=== PATIENT | male | born 1965 | race Caucasian/White ===

== ENCOUNTER 2018-09-20 19:37 | Inpatient (IN) ==
--- NOTE | 2018-09-20 20:31 | Emergency Department Note ---
Disposition Clinical Impression: Unstable angina pectoris Disposition: Admitted As Inpatient Condition: Good Time of Disposition: 21:53 Chest Pain HPI - General Chief Complaint: ED Chest Pain Stated Complaint: ILSA/CP/back pain Time Seen by Provider: 09/20/18 19:59 Source: patient Mode of arrival: ambulatory Limitations: no limitations Vital Signs Reviewed: Yes Nursing Notes Reviewed: Yes - History of Present Illness HPI Narrative: 52-year-old male with no history of hypertension, hyperlipidemia or diabetes, nonsmoker but has an extensive family history of premature cardiovascular disease arrives to the emergency department with complaint of exertional dyspnea, chest discomfort. Patient describes it as a chest tightness is retrosternal radiating to bilateral shoulders and down his right upper extremity. Patient states that over the past few days he has been experiencing the same symptoms while at rest. The patient was seen in emergency department one day ago was diagnosed with angina. The patient states that he had a cardiac catheter roughly 6 years ago that he received no stents. The patient states he has not followed up since then. Patient is noted to be mildly hypertensive on evaluation in the room. He is obese. The patient denies any active chest pain at this time. No other complaints noted. Severity scale (1-10): 0 - Related Data Home Medications Medication Instructions Recorded Confirmed Cetirizine HCl [Zyrtec] 10 mg PO DAILY 05/01/15 05/01/15 Previous Rx's Medication Instructions Recorded Docusate Sodium [Colace] 100 mg PO QPM #30 capsule 05/02/15 Omeprazole 20 mg PO DAILY #30 capsule. 05/02/15 Peg 3350/Na Sulf,Bicarb,Cl/KCl 1 each PO DAILY #1 powd.pack 05/02/15 [Golytely Packet] OxyCODONE/APAP 5/325 [Percocet 1 each PO Q6HR PRN #10 tablet 05/07/15 5/325] Ciprofloxacin [Cipro] 500 mg PO BID #14 tablet 02/13/17 HYDROcodone/Acet 5/325 mg [[place] 1 tab PO Q6H PRN #12 tab 02/13/17 5-325 mg] Omeprazole [PriLOSEC] 40 mg PO DAILY #14 cap 02/13/17 Allergies Allergy/AdvReac Type Severity Reaction Status Date / Time metronidazole [From Flagyl] Allergy Nausea Verified 05/01/15 21:18 All systems ED: reviewed and negative except as stated. Constitutional: Denies: fever, chills, weakness ENT ED: Denies: dysphagia Cardiovascular: Reports: chest pain, dyspnea on exertion. Denies: orthopnea, edema, syncope Respiratory: Reports: dyspnea. Denies: cough, sputum production Gastrointestinal: Denies: abdominal pain, nausea, vomiting Genitourinary: Denies: urgency, dysuria, frequency, hematuria Musculoskeletal: Denies: back pain, neck pain, arthralgia, myalgia Integumentary: Denies: rash, abrasion, lesions Neurological: Denies: headache Chest Pain PMH - Past Medical History Medical history: Reports: other Surgical history: Reports: appendectomy Psychiatric history: Reports: anxiety Prior Cardiac Testing/Procedures: Echocardiogram, Stress Test, Cardiac Angiogram - Social History Smoking Status: Never smoker Alcohol use: Reports: none Drug use: Reports: none Physical Exam - General Limitations: no limitations General appearance: alert, in no apparent distress - Head Head exam: atraumatic, normocephalic, normal inspection - Eye Eye exam: Present: normal appearance, PERRL, EOMI - ENT ENT exam: normal exam, normal oropharynx, mucous membranes moist - Neck Neck exam: Present: normal inspection, full ROM, trachea midline - Chest Chest inspection: Present: normal inspection, symmetric chest wall rise - Respiratory Respiratory exam: Present: normal lung sounds bilaterally - Cardiovascular Cardiovascular exam: Present: regular rate, normal rhythm, normal heart sounds - Abdominal Exam Abdominal exam: Present: soft, Non-Tender. Absent: tenderness, distention, guarding, rebound, rigidity - Extremities Exam Extremities exam: Present: normal inspection, full ROM. Absent: tenderness, pedal edema - Neurological Exam Neurological exam: Present: alert, oriented X3 - Skin Skin exam: Present: warm, dry, intact, normal color Course Vital Signs Temperature 98.2 F 09/20/18 19:41 Pulse Rate 99 09/20/18 19:41 Respiratory Rate 18 09/20/18 19:41 Blood Pressure 147/86 09/20/18 19:41 O2 Sat by Pulse Oximetry 98 09/20/18 19:41 Temperature 98.2 F 09/20/18 19:41 Pulse Rate 88 09/20/18 20:43 Respiratory Rate 16 09/20/18 20:43 Blood Pressure 134/96 09/20/18 20:43 O2 Sat by Pulse Oximetry 99 09/20/18 20:43 Oxygen Delivery Oxygen Delivery Room Air Chest Pain - MDM Narrative Medical decision making narrative: Patient's workup in the emergency department demonstrates no acute process. The patient however has been exhibiting findings concerning for unstable angina. The patient has an extensive family history of cardiovascular disease and I am concerned about the patient's symptoms. Patient's chest x-ray, EKG and troponin are both negative for any acute process. We will admit the patient to the hospital at this time for trending of troponins as well as likely cardiology follow-up and stress testing. The patient was made aware and agrees to plan. No further questions or concerns noted at this time. Accepted by Dr. Vang. - Lab Data Lab results reviewed: Yes I reviewed the patient's lab results. Result diagrams: 09/20/18 20:20 09/20/18 20:20 Lab Results 09/20/18 09/20/18 09/20/18 Range/Units 20:20 20:20 20:20 WBC 11.6 H (4.3-11.1) K/mcL RBC 5.14 (4.19-5.50) M/mcL Hgb 15.5 (12.9-16.9) g/dL Hct 45.4 (37.5-50.1) % MCV 88.3 (83.0-100.0) fL MCH 30.2 (28.0-33.3) pg MCHC 34.1 (31.6-35.5) g/dL RDW 13.3 (11.5-14.5) % Plt Count 250 (140-400) K/mcL MPV 10.1 (9.4-12.4) fL Immature Gran % 0.4 (0-4) % Seg Neutrophils % 67.9 % Lymphocytes % 17.6 % Monocytes % 11.0 % Eosinophils % 2.4 % Basophils % 0.7 % Neutrophils # 7.9 (1.6-8.9) K/mcL Lymphocytes # 2.0 (0.6-4.6) K/mcL Monocytes # 1.3 (0.0-1.3) K/mcL Eosinophils # 0.3 (0.0-0.6) K/mcL Basophils # 0.1 (0.0-0.2) K/mcL PT 12.4 H (9.4-12.1) Seconds INR 1.1 APTT 35.0 (26.0-36.0) Seconds Sodium 141 (136-145) mEq/L Potassium 4.1 (3.5-5.1) mEq/L Chloride 104 (98-107) mEq/L Carbon Dioxide 28 (23-29) mEq/L BUN 18 (6-20) mg/dL Creatinine 1.22 (0.70-1.30) mg/dL Est GFR ( Amer) > 60 (> 60) Est GFR (Non-Af Amer) > 60 (> 60) BUN/Creatinine Ratio 15 (6-26) Glucose 92 (70-105) mg/dL Calculated Osmolality 294 (280-300) Calcium 9.2 (8.6-10.3) mg/dL Troponin I < 0.03 (< 0.04) ng/mL - Radiology Data Radiology results reviewed: Yes I reviewed the patient's radiology results. Chest X-Ray 09/20/18 19:59 IMPRESSION: No acute cardiopulmonary process D/ / [place] Gracia / [place] Gracia Interpreting Provider: [place] Gracia - EKG Data EKG attestation: Yes I reviewed and interpreted this EKG. EKG results narrative: Heart rate 85 beats for minute. Normal sinus rhythm. No ST elevation or ST depression noted. PVCs noted. EKG overall similar to EKG from 06/24/2013. No acute changes.
[2018-09-20 20:38] LABS: Basophils # 0.1 K/mcL (0.0-0.2); Basophils % 0.7 %; Eosinophils # 0.3 K/mcL (0.0-0.6); Eosinophils % 2.4 %; Hematocrit 45.4 % (37.5-50.1); Hemoglobin 15.5 g/dL (12.9-16.9); Immature Granulocytes % 0.4 % (0-4); Lymphocytes % 17.6 %; Mean Corpuscular HGB Conc 34.1 g/dL (31.6-35.5); Mean Corpuscular Hemoglobin 30.2 pg (28.0-33.3); Mean Corpuscular Volume 88.3 fL (83.0-100.0); Mean Platelet Volume 10.1 fL (9.4-12.4); Monocytes # 1.3 K/mcL (0.0-1.3); Neutrophils # 7.9 K/mcL (1.6-8.9); Platelet Count 250 K/mcL (140-400); Red Blood Count 5.14 M/mcL (4.19-5.50); Red Cell Distribution Width 13.3 % (11.5-14.5); Segmented Neutrophils % 67.9 %
[2018-09-20 20:46] LABS: INR 1.1; Prothrombin Time 12.4 Seconds (9.4-12.1)
[2018-09-20 20:58] LABS: BUN/Creatinine Ratio 15 (6-26); Blood Urea Nitrogen 18 mg/dL (6-20); Calcium 9.2 mg/dL (8.6-10.3); Carbon Dioxide 28 mEq/L (23-29); Chloride 104 mEq/L (98-107); Glucose 92 mg/dL (70-105); Osmolality,Calculated 294 (280-300); Potassium 4.1 mEq/L (3.5-5.1); Sodium 141 mEq/L (136-145); eGFR For Non-African Americans > 60 (> 60)
[2018-09-20 20:59] LABS: Troponin I < 0.03 ng/mL (< 0.04)
[2018-09-20] MEDS ORDERED: Aspirin 325 MG TABLET PO ONE (21:30)
--- NOTE | 2018-09-20 22:28 | Emergency Department Note ---
Disposition Clinical Impression: Unstable angina pectoris Disposition: Admitted As Inpatient Condition: Good General Adult HPI - General Chief complaint: ED Chest Pain Stated complaint: ILSA/CP/back pain Time Seen by Provider: 09/20/18 19:59 Source: patient Mode of arrival: ambulatory Limitations: no limitations Nursing Notes Reviewed: Yes Vital Signs Reviewed: Yes - History of Present Illness Pain Scale: 0 - Related Data Home Medications Medication Instructions Recorded Confirmed Cetirizine HCl [Zyrtec] 10 mg PO DAILY 05/01/15 05/01/15 Previous Rx's Medication Instructions Recorded Docusate Sodium [Colace] 100 mg PO QPM #30 capsule 05/02/15 Omeprazole 20 mg PO DAILY #30 capsule. 05/02/15 Peg 3350/Na Sulf,Bicarb,Cl/KCl 1 each PO DAILY #1 powd.pack 05/02/15 [Golytely Packet] OxyCODONE/APAP 5/325 [Percocet 1 each PO Q6HR PRN #10 tablet 05/07/15 5/325] Ciprofloxacin [Cipro] 500 mg PO BID #14 tablet 02/13/17 HYDROcodone/Acet 5/325 mg [[place] 1 tab PO Q6H PRN #12 tab 02/13/17 5-325 mg] Omeprazole [PriLOSEC] 40 mg PO DAILY #14 cap 02/13/17 Allergies Allergy/AdvReac Type Severity Reaction Status Date / Time metronidazole [From Flagyl] Allergy Nausea Verified 05/01/15 21:18 Constitutional: Denies: fever, chills, weakness ENT ED: Denies: dysphagia Cardiovascular: Reports: chest pain, dyspnea on exertion. Denies: orthopnea, edema, syncope Respiratory: Reports: dyspnea. Denies: cough, sputum production Gastrointestinal: Denies: abdominal pain, nausea, vomiting Genitourinary: Denies: urgency, dysuria, frequency, hematuria Musculoskeletal: Denies: back pain, neck pain, arthralgia, myalgia Integumentary: Denies: rash, abrasion, lesions Neurological: Denies: headache Past Medical History - Past Medical History Medical history: Reports: other Surgical history: Reports: appendectomy Psychiatric history: Reports: anxiety - Social History Smoking Status: Never smoker Smokeless Tobacco Status: No Alcohol use: Reports: none Drug use: Reports: none Physical Exam - General Limitations: no limitations General appearance: alert, in no apparent distress Course Vital Signs Temperature 98.2 F 09/20/18 19:41 Pulse Rate 99 09/20/18 19:41 Respiratory Rate 18 09/20/18 19:41 Blood Pressure 147/86 09/20/18 19:41 O2 Sat by Pulse Oximetry 98 09/20/18 19:41 Temperature 98.2 F 09/20/18 19:41 Pulse Rate 93 09/20/18 22:20 Respiratory Rate 16 09/20/18 22:20 Blood Pressure 138/97 09/20/18 22:20 O2 Sat by Pulse Oximetry 97 09/20/18 22:20 Oxygen Delivery Oxygen Delivery Room Air Medical Decision Making - Medical Records Medical records reviewed: Yes I reviewed the patient's medical records. - Lab Data Lab results reviewed: Yes I reviewed the patient's lab results. Result diagrams: 09/20/18 20:20 09/20/18 20:20 Lab Results 09/20/18 09/20/18 09/20/18 Range/Units 20:20 20:20 20:20 WBC 11.6 H (4.3-11.1) K/mcL RBC 5.14 (4.19-5.50) M/mcL Hgb 15.5 (12.9-16.9) g/dL Hct 45.4 (37.5-50.1) % MCV 88.3 (83.0-100.0) fL MCH 30.2 (28.0-33.3) pg MCHC 34.1 (31.6-35.5) g/dL RDW 13.3 (11.5-14.5) % Plt Count 250 (140-400) K/mcL MPV 10.1 (9.4-12.4) fL Immature Gran % 0.4 (0-4) % Seg Neutrophils % 67.9 % Lymphocytes % 17.6 % Monocytes % 11.0 % Eosinophils % 2.4 % Basophils % 0.7 % Neutrophils # 7.9 (1.6-8.9) K/mcL Lymphocytes # 2.0 (0.6-4.6) K/mcL Monocytes # 1.3 (0.0-1.3) K/mcL Eosinophils # 0.3 (0.0-0.6) K/mcL Basophils # 0.1 (0.0-0.2) K/mcL PT 12.4 H (9.4-12.1) Seconds INR 1.1 APTT 35.0 (26.0-36.0) Seconds Sodium 141 (136-145) mEq/L Potassium 4.1 (3.5-5.1) mEq/L Chloride 104 (98-107) mEq/L Carbon Dioxide 28 (23-29) mEq/L BUN 18 (6-20) mg/dL Creatinine 1.22 (0.70-1.30) mg/dL Est GFR ( Amer) > 60 (> 60) Est GFR (Non-Af Amer) > 60 (> 60) BUN/Creatinine Ratio 15 (6-26) Glucose 92 (70-105) mg/dL Calculated Osmolality 294 (280-300) Calcium 9.2 (8.6-10.3) mg/dL Troponin I < 0.03 (< 0.04) ng/mL - Radiology Data Radiology results reviewed: Yes I reviewed the patient's radiology results. Chest X-Ray 09/20/18 19:59 IMPRESSION: No acute cardiopulmonary process D/ / [place] Gracia / [place] Gracia Interpreting Provider: [place] Gracia - EKG Data EKG #1 EKG attestation: Yes I reviewed and interpreted this EKG. EKG results narrative: EKG shows a normal sinus rhythm with ventricular rate of 85. PVC. Low voltage in precordial leads. No acute ST segment elevation or depression. Attestation Statement - Attestation Attestation: ISai MD, personally evaluated this patient and discussed their management with the resident physician. I reviewed the resident's note and agree with the documented findings, medical decision making, and plan of care. 52-year-old male presents to the emergency department with a complaint of having intermittent chest pains and shortness of breath over the past several weeks. The episodes seem to be getting progressively worse. It is associated with exertion but sometimes occurs at rest. He describes the pain as a squeezing sensation in his mid chest in the substernal region. Sometimes it radiates to the shoulders into the arms. No definite prior cardiac history. He states about 6 years ago he was admitted at another facility and had a stress test and an echocardiogram. He also had a cardiac catheter but did not have any stents placed. He denies history of hypertension or hyperlipidemia. He is not d iabetic. Nonsmoker. Patient not having any chest pain or discomfort or shortness of breath at present. On examination patient is a well-developed obese male in no acute distress. He is alert and oriented 3. There is no cyanosis or diaphoresis. Chest is nontender to palpation. Breath sounds are clear and equal bilaterally. Heart regular rate and rhythm. Abdomen soft and nontender with normal bowel sounds. EKG shows a normal sinus rhythm with no acute ischemic changes. One PVC noted. Labs reviewed and unremarkable. Troponin normal. Chest x-ray negative. The hospitalist, Dr. Vang, was consulted and accepted admission of the patient.
[2018-09-20] MEDS ORDERED: Nitroglycerin 0.4 MG TAB.SUBL SL PRN (23:17)
[2018-09-21] MEDS ORDERED: GI Cocktail 40 ML EACH PO ONE (00:25)
[2018-09-21] MEDS ORDERED: Loratadine/Pseudophed (12 HR) 1 EACH TABLET PO PRN (00:26)
[2018-09-21] MEDS ORDERED: Naloxone 0.4 MG/ML INJ IVP PRN (00:32)
[2018-09-21] MEDS: Pantoprazole 40 MG VIAL IVP SCH ×2 (00:47→06:20)
--- NOTE | 2018-09-21 00:51 | Internal Med History&Physical ---
Date of Encounter: 09/20/18 Time of Encounter: 23:00 Internal Medicine - H&P: HPI Chief complaint: CP/SOB Admitted From: Emergency Dept Plans for Post Hospital Care: Home History of present illness: Mr. Cisneros is a 52 year old male w/PMH of GERD, seasonal allergies, and depression presents from the ED w/CC of CP that began approximately 1 week ago and presented as pain in center of chest and left chest that was intermittent sharp and stabbing with squeezing sensation. Patient reports symptoms came on at rest as well as while he was exerting himself. Intermittent. Radiation to back, shoulders, neck, and arms. No alleviating or aggravating factors. Associated symptoms: Weakness, diaphoresis, and shortness of breath. Patient denies previous diagnoses of COPD or CHF. Similar symptoms 6 years ago when patient had heart catheterization with no stents placed. Patient also reports history of poorly controlled GERD and recent cough. Patient reports diagnosis of MRSA within bilateral nasal cavities 3-4 weeks ago but denies recent illness, fever, chills, nausea, vomiting, headache, changes in vision, unusual bleeding, abdominal pain, diarrhea, constipation, dizziness, lightheadedness, numbness, tingling, pre-syncope, or syncope. Past Med Surg Social Fam HX - Past Medical History Source: patient, old records reviewed Medical history: GERD, other Additional medical history: Diverticulitis, seasonal allergies Psychiatric history: anxiety - Past Surgical History Surgical History: appendectomy Additional surgical history: heart cath no stents - Social History Smoking Status: Never smoker Smokeless Tobacco Status: No Alcohol use: none Drug use: none Occupational status: retired Current living situation: Home Activity Level: Independent ambulation Recent Out of Country Travel Within the Last 8 Weeks: No Exposure or Possible Exposure to Illness During Travel: No - Family History Father Adopted: [place]: Josh Race: Family Member Ethnicity: Non- Living Status: Age at : 91 Cause of : COPD Hx Family Cardiac Disorders: Yes (GA x2 <50 years of age, Aortic valve replacement @ 70 yo) Hx Family Respiratory Disorders: Yes (Lung disease) Hx Family GI Disorders: Yes (Double hernia) Hx Family Genitourinary Disorders: Yes (Cystitis) Mother Race: Family Member Ethnicity: Non- Living Status: Age at : 80 Cause of : Liver cancer Hx Family Cardiac Disorders: Yes (CAD) Hx Family Cancer: Yes (Liver) Hx Family Endocrine Disorder: Yes (DM) Brother Race: Family Member Ethnicity: Non- Living Status: Age at : 6 Cause of : Hole in heart Hx Family Cardiac Disorders: Yes (Cardiac anomaly/ at 6 weeks) Sister Race: Family Member Ethnicity: Non- Living Status: Age at : 56 Cause of : DM complications Hx Family Endocrine Disorder: Yes (DM) Internal Medicine - H&P: Meds Omeprazole 20 mg PO DAILY #30 capsule. 05/02/15 [Rx] Docusate Sodium [Colace] 100 mg PO QPM PRN 09/20/18 [History] Fluticasone Furoate [Flonase Sensimist] 15.8 ml NS DAILY 09/20/18 [History] Guaifenesin/Dm/Pseudoephedrine [Capmist Dm Tablet] 1 each PO 09/20/18 [History] Guaifenesin/Dm/Pseudoephedrine [Capmist Dm Tablet] 1 each PO 09/20/18 [History] Loratadine/Pseudophed (12 HR) [Claritin D (12HR)] 1 each PO BID PRN 09/20/18 [History] Nefazodone HCl 200 mg PO BID 09/20/18 [History] Omeprazole [PriLOSEC] 20 mg PO DAILY 09/20/18 [History] Allergy/AdvReac Type Severity Reaction Status Date / Time metronidazole [From Flagyl] Allergy Nausea Verified 05/01/15 21:18 All Systems PM: A 10-system review of systems was performed and is negative for pertinent findings except as documented above in the HPI. - Constitutional Constitutional: fatigue, weakness, no chills, no fever(s), no night sweats - EENT Eyes: no change in vision, no discharge, no pain, no photophobia Ears: no ear discharge, no ear pain, no tinnitus Nose, mouth and throat: no dysphagia, no nasal discharge, no neck pain, no sore throat - Breasts Breasts: as per HPI - Cardiovascular Cardiovascular ROS IM: as per HPI, chest pain, diaphoresis, dyspnea, dyspnea on exertion, no lightheadedness, no palpitations, no syncope - Respiratory Respiratory: as per HPI, cough, dyspnea, dyspnea on exertion, no wheezing, no excessive phlegm production - Gastrointestinal Gastrointestinal: no abdominal pain, no diarrhea, no hematemesis, no hematochezia, no melena, no nausea, no vomiting - Genitourinary Genitourinary ROS male: as per HPI - Musculoskeletal Musculoskeletal ROS IM: no numbness, no tingling - Integumentary Integumentary IM: no rash, no unusual bruising - Neurological Neurological ROS: no confusion, no convulsions, no focal weakness, no numbness, no tingling, no tremor(s) - Psychiatric Psychiatric: as per HPI, depression - Endocrine Endocrine IM: as per HPI - Hematologic/Lymphatic Hematologic/Lymphatic: no easy bruising - Allergic/Immunologic Allergic/Immunologic: as per HPI - Constitutional Vitals: Temp Pulse Resp BP Pulse Ox 97.5 F L 80 16 107/70 96 09/20/18 23:09 09/20/18 23:09 09/20/18 23:09 09/20/18 23:09 09/20/18 23:09 General appearance: Present: cooperative, A&O X 3, morbidly obese, pleasant, no acute distress, answers questions appropriately Exam: Pt. examined at bedside. Patient resting comfortably in bed and denies chest pain on exam. Patient does report shortness of breath and weakness with CP sx. also reports intermittent diaphoresis but denies nausea or vomiting. Patient denies any other symptoms or complaints at this time. VS: 97.5F temp, HR 80, RR 16, BP 107/70, SPO2 96% on room air. - Head Head exam: Present: atraumatic, normocephalic - Eye Eye exam: Present: PERRL, conjuntiva pink, sclera anicteric Pupils: Present: PERRL - ENT ENT exam: Present: normal exam - Neck Neck exam general surgery: Present: normal inspection, supple, trachea midline. Absent: lymphadenopathy - Respiratory Respiratory exam: Present: CTAB. Absent: accessory muscle use, rales, rhonchi, wheezes - Cardiovascular Cardiovascular exam: Present: RRR, +S1, +S2. Absent: diastolic murmur, gallop, rubs, systolic murmur - GI/Abdominal GI/Abdominal exam: Present: normal bowel sounds, soft, no peritoneal signs. Absent: distended, tenderness - Rectal Rectal exam: Present: deferred - Additional comments: exam deferred. - Extremities Exam Extremities exam: Present: warm, radial pulses palpable and symmetrical. Absent: calf tenderness, cyanotic, pedal edema - Back Exam Back exam: Present: normal inspection - Neurological Exam Neurological exam: Present: alert, CN II-XII intact, oriented X3, no focal deficits. Absent: pronater drift, facial droop, speech deficit - Psychiatric Psychiatric exam: Present: normal affect, normal mood - Skin Skin exam: Present: dry, intact Internal Med - H&P Results - Labs CBC & Chem 7: 09/20/18 20:20 09/20/18 20:20 Labs: Short CBC 09/20/18 Range/Units 20:20 WBC 11.6 H (4.3-11.1) K/mcL Hgb 15.5 (12.9-16.9) g/dL Hct 45.4 (37.5-50.1) % Plt Count 250 (140-400) K/mcL Neutrophils # 7.9 (1.6-8.9) K/mcL BMP 09/20/18 20:20 Sodium 141 Potassium 4.1 Chloride 104 Carbon Dioxide 28 BUN 18 Creatinine 1.22 Glucose 92 Calcium 9.2 Cardiac Enzymes 09/20/18 Range/Units 20:20 Troponin I < 0.03 (< 0.04) ng/mL - Impressions ITS Impressions Chest X-Ray 09/20/18 19:59 IMPRESSION: No acute cardiopulmonary process D/ / [place] Gracia / [place] Gracia Interpreting Provider: [place] Gracia - Diagnostic Studies Chest x-ray Additional comments: Impressions Chest X-Ray 09/20/18 19:59 IMPRESSION: No acute cardiopulmonary process D/ / [place] Gracia / [place] Gracia Interpreting Provider: [place] Gracia - Assessment and plan (1) Unstable angina pectoris Current Visit: Yes Status: Acute Assessment and plan: Acute unstable angina pectoris for the past week. Pt. reports CP presents as pain in center of chest and left chest that was intermittent sharp and stabbing with squeezing sensation. Patient reports symptoms came on at rest as well as while he was exerting himself. Intermittent. Radiation to back, shoulders, neck, and arms. Associated symptoms: Weakness, diaphoresis, and shortness of breath. Patient denies previous diagnoses of COPD or CHF. Similar symptoms 6 years ago when patient had heart catheterization with no stents placed. Father had hx of GA x2 <50 yo. CXR shows no acute cardiopulmonary process. Pt. given 325 mg aspirin in ED and will continue 81 mg daily. 80 mg Lipitor once. SL nitro PRN. Initial troponin <0.03. Will trend. Echocardiogram. NPO at midnight for a.m. nuclear stress test if troponins remain WNL. Consider adding Cardiology consult if troponins, Echocardiogram, and/or stress test results abnormal. Pt. is high risk for further morbidity and cardiac event based on unstable angina pectoris for the past week that presented w/exertion and at rest, CP w/radiation, familial hx of GA (father x2 before the age of 50 yo), and current morbid obesity. Observation. (2) SOB (shortness of breath) Current Visit: Yes Status: Acute Assessment and plan: Acute SOB accompanying CP sx. Pt. denies home O2 use, hx/dx of COPD, or CHF. Supplemental O2 w/titration and SpO2 monitoring. Mucinex for cough/congestion. Respiratory infection panel ordered. (3) Cough Current Visit: Yes Status: Acute Assessment and plan: Acute cough over the past week that pt. describes as unproductive. Mucinex ordered. Respiratory infection panel ordered. (4) Generalized weakness Current Visit: Yes Status: Acute Assessment and plan: Acute and generalized weakness accompanying CP sx. Pt. denies hx or dx of COPD or CHF. Echocardiogram ordered to assess EF and d/t CP. Falls precautions and up with assist. (5) Leukocytosis Current Visit: Yes Status: Acute Assessment and plan: Acute leukocytosis w/WBC of 11.6 on admission. Hx of MRSA 3-4 weeks ago, but pt. is currently afebrile and asymptomatic. Likely reactive d/t CP. Blood cultures ordered. Qualifiers: Leukocytosis type: unspecified Qualified Code(s): D72.829 - Elevated white blood cell count, unspecified (6) GERD (gastroesophageal reflux disease) Current Visit: Yes Status: Chronic Assessment and plan: Hx of GERD that pt. reports is poorly controlled. GI cocktail now. IVP Protonix 40 mg once and will continue pts. PO Omeprazole tomorrow. Qualifiers: Esophagitis presence: esophagitis presence not specified Qualified Code(s): K21.9 - Gastro-esophageal reflux disease without esophagitis (7) Seasonal allergies Current Visit: Yes Status: Chronic Assessment and plan: Hx of chronic seasonal allergies. Continue pts. Claritin-D and Flonase. (8) Depression Current Visit: Yes Status: Chronic Assessment and plan: Hx of chronic depression. Continue pts. Nefazodone. Qualifiers: Depression Type: other depression Qualified Code(s): F32.89 - Other specified depressive episodes (9) Hx MRSA infection Current Visit: Yes Status: Resolved Assessment and plan: Hx of MRSA infection in bilateral nares 3-4 weeks ago. Pt. states he developed sores inside the nares of his nose and was placed on PO abx for 10 days. MRSA screening ordered. (10) DVT prophylaxis Current Visit: Yes Status: Acute Assessment and plan: Heparin 5,000 units SQ Q8HR for DVT prophylaxis. Monitor pt. for signs of bleeding. - Time Spent With Patient Total time spent is greater than 50% in coordination of care (as documented) at patient's floor/unit and/or counseling patient: Greater than 35 minutes
[2018-09-21] MEDS: NEFAZODONE PO SCH ×2 (01:38→21:50)
[2018-09-21 02:24] LABS: Adenovirus Not Detected (Not Detect); Bordetella Pertussis Not Detected (Not Detect); Chlamydophila pneumoniae Not Detected (Not Detect); Coronavirus 229E Not Detected (Not Detect); Coronavirus HKU1 Not Detected (Not Detect); Coronavirus NL63 Not Detected (Not Detect); Coronavirus OC43 DETECTED (Not Detect); Human Metapneumovirus Not Detected (Not Detect); Human Rhinovirus/Enterovirus Not Detected (Not Detect); Influenza A Subtype 2009 H1 Not Detected (Not Detect); Influenza A Untypeable Not Detected (Not Detect); Influenza B Not Detected (Not Detect); Mycoplasma pneumoniae Not Detected (Not Detect); Parainfluenza Virus 1 Not Detected (Not Detect); Parainfluenza Virus 2 Not Detected (Not Detect); Parainfluenza Virus 3 Not Detected (Not Detect); Parainfluenza Virus 4 Not Detected (Not Detect); Respiratory Syncytial Virus Not Detected (Not Detect)
[2018-09-21 03:41] LABS: Basophils # 0.1 K/mcL (0.0-0.2); Basophils % 0.6 %; Eosinophils # 0.3 K/mcL (0.0-0.6); Eosinophils % 2.7 %; Hemoglobin 15.4 g/dL (12.9-16.9); Immature Granulocytes % 0.3 % (0-4); Lymphocytes # 2.2 K/mcL (0.6-4.6); Lymphocytes % 20.7 %; Mean Corpuscular HGB Conc 34.2 g/dL (31.6-35.5); Mean Corpuscular Hemoglobin 30.4 pg (28.0-33.3); Mean Corpuscular Volume 88.8 fL (83.0-100.0); Mean Platelet Volume 10.1 fL (9.4-12.4); Monocytes # 1.2 K/mcL (0.0-1.3); Monocytes % 11.3 %; Neutrophils # 6.7 K/mcL (1.6-8.9); Platelet Count 227 K/mcL (140-400); Red Blood Count 5.07 M/mcL (4.19-5.50); Red Cell Distribution Width 13.4 % (11.5-14.5); Segmented Neutrophils % 64.4 %
[2018-09-21 04:02] LABS: Alanine Aminotransferase 26 Units/L (7-52); Albumin 4.3 g/dL (3.5-5.7); Albumin/Globulin Ratio 1.7 (1.1-2.2); Alkaline Phosphatase 48 Units/L (34-104); Aspartate Amino Transferase 21 Units/L (13-39); BUN/Creatinine Ratio 15 (6-26); Bilirubin,Total 1.9 mg/dL (0.3-1.0); Blood Urea Nitrogen 17 mg/dL (6-20); Calcium 9.1 mg/dL (8.6-10.3); Carbon Dioxide 28 mEq/L (23-29); Chloride 104 mEq/L (98-107); Chol/HDL Ratio 2.2 (0-4.9); Cholesterol 107 mg/dL (< 200); Globulin 2.6 g/dL (2.4-3.5); Glucose 104 mg/dL (70-105); HDL Cholesterol 49 mg/dL (40-59); LDL Cholesterol,Calculated 51 mg/dL (0-99); Magnesium 1.9 mg/dL (1.6-2.6); Osmolality,Calculated 294 (280-300); Potassium 3.7 mEq/L (3.5-5.1); Sodium 141 mEq/L (136-145); Total Protein 6.9 g/dL (6.4-8.9); Triglycerides 37 mg/dL (< 150); eGFR For Non-African Americans > 60 (> 60)
[2018-09-21] MEDS ORDERED: Regadenoson 0.4 MG/5 ML SYRINGE IVP ONE (05:47)
[2018-09-21] MEDS: *HR* Heparin 5,000 UNIT/ML VIAL SQ SCH ×3 (06:20→21:50)
[2018-09-21 06:47] LABS: Estimated Average Glucose 100 mg/dl; Hemoglobin A1C 5.1 %
[2018-09-21] MEDS: Fluticasone Propionate Nasal 50 MCG/SPRAY BOTTLE NS SCH (11:28)
[2018-09-21] MEDS: NEFAZODONE HCL 200 MG PO SCH (11:28)
[2018-09-21] MEDS: Aspirin Enteric Coated 81 MG Tablet PO SCH (11:33)
--- NOTE | 2018-09-21 15:38 | Electrocardiograph Report ---
[place] [id number] Test Date: 2018-09-20 Pat Name: Saqib Cisneros Department: [id number] Room: 3B16 Gender: M Manager Stars: : 1965 Requested By: Dm Bolanos Order Number: [id number] Reading MD: Jass Harper Measurements Intervals [place] Rate: 85 P: 35 WI: 183 QRS: 43 QRSD: 75 T: 49 QT: 365 QTc: 434 Interpretive Statements Sinus rhythm Ventricular premature complex Low voltage, precordial leads Electronically Signed On 09-21-2018 15:36:54 EST by Jass Harper
[2018-09-22] MEDS: *HR* Heparin 5,000 UNIT/ML VIAL SQ SCH ×3 (06:04→21:04)
[2018-09-22] MEDS: Pantoprazole 40 MG VIAL IVP SCH (06:04)
--- NOTE | 2018-09-22 08:58 | Internal Med Progress Note ---
Hospitalist Progress Note - Encounter Date of Encounter: 09/22/18 Time of Encounter: 08:55 - Subjective Interval History: Pt has no chest pain currently. He denies sob, palpitation, or syncope. Finished first part of stress test yesterday and will complete the second part today. No complaints at the time. - Exam Vitals: Temp Pulse Resp BP Pulse Ox 97.7 F 87 14 130/77 96 09/22/18 07:48 09/22/18 07:48 09/22/18 07:48 09/22/18 07:48 09/22/18 07:48 Exam: PHYSICAL EXAMINATION: GENERAL APPEARANCE: The patient is alert, oriented and in no acute distress. HEENT: Head is normocephalic. The sinuses are nontender. Pupils are equal and reactive. The nares are patent. Oropharynx clear without lesions. NECK: Supple without lymphadenopathy. HEART: Regular rate and rhythm. LUNGS: No crackles or wheezes are heard. ABDOMEN: Soft, nontender, nondistended with good bowel sounds heard. Inguinal area is normal. EXTREMITIES: Without cyanosis, clubbing or edema. NEUROLOGICAL: Gross nonfocal. SKIN: Warm and dry without any rash. - Assessment and Plan (1) Unstable angina pectoris Current Visit: Yes Status: Acute Assessment and Plan: 52-year-old gentleman with previous history of CAD, family history of heart disease, obesity presented with left-sided chest pain, intermittent, associated with weakness, diaphoresis, and shortness breath. Patient had a left-sided heart catheter 6 years ago. Echo performed yesterday and the patient will f inish the stress test today. (2) SOB (shortness of breath) Current Visit: Yes Status: Acute Assessment and Plan: Acute SOB accompanying CP sx. Pt. denies home O2 use, hx/dx of COPD, or CHF. Supplemental O2 w/titration and SpO2 monitoring. Respiratory panel positive for coronavirus. Patient cough and congestion have been relieved by Mucinex. (3) Generalized weakness Current Visit: Yes Status: Acute Assessment and Plan: Acute and generalized weakness accompanying CP sx. Pt. denies hx or dx of COPD or CHF. 09/21/2018 showed normal EF and mild LVDD, no fluid overload. (4) Leukocytosis Current Visit: Yes Status: Resolved (5) GERD (gastroesophageal reflux disease) Current Visit: No Status: Chronic Assessment and Plan: improved,continue home Prilosec. (6) Seasonal allergies Current Visit: Yes Status: Chronic Assessment and Plan: Hx of chronic seasonal allergies. Continue pts. Claritin-D and Flonase. (7) Depression Current Visit: Yes Status: Chronic Assessment and Plan: Hx of chronic depression. Continue pts. Nefazodone. (8) Hx MRSA infection Current Visit: Yes Status: Resolved Assessment and Plan: Hx of MRSA infection in bilateral nares 3-4 weeks ago. Pt. states he developed sores inside the nares of his nose and was placed on PO abx for 10 days. MRSA screening ordered. (9) DVT prophylaxis Current Visit: Yes Status: Acute Assessment and Plan: Heparin 5,000 units SQ Q8HR for DVT prophylaxis. Monitor pt. for signs of bleeding. - Time Spent with Patient Total time spent is greater than 50% in coordination of care (as documented) at patient's floor/unit and/or counseling patient: Greater than 35 minutes Plan of Care Discussed with: patient Internal Medicine: Result - Labs CBC & Chem 7: 09/21/18 03:17 09/21/18 03:17 Labs: Cardiac Enzymes 09/21/18 Range/Units 08:41 Troponin I < 0.03 (< 0.04) ng/mL - ABG Interpretation ABG results: PT/INR, D-dimer PT 12.4 Seconds (9.4-12.1) H 09/20/18 20:20 - Impressions Impressions Echocardiogram 09/21/18 23:17 Impressions: LVEF 60%. Mild concentric left ventricular hypertrophy. Mild left ventricular diastolic dysfunction. Normal right ventricular structure and function. 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 Mild mitral regurgitation. Mild pulmonary hypertension. Left Ventricular Wall Motion: Rest Echo Findings All wall segments showed normal motion. Findings: Study Quality * Technically sub-optimal due to poor echocardiographic windows. ECG Findings * Normal sinus rhythm. Left Ventricle * LVEF 60%. * Mild concentric left ventricular hypertrophy. * Mild left ventricular diastolic dysfunction. Right Ventricle * Normal right ventricular structure and function. Left Atrium * Normal left atrial size. Right Atrium * Normal right atrial size. Interatrial Septum * No evidence of PFO by color Doppler. Aortic Valve * Aortic valve not well visualized. * No aortic stenosis. * Trace aortic regurgitation. 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 * Mild mitral regurgitation. * Mildly thickened mitral valve leaflets. Tricuspid Valve * Normal tricuspid valve structure. * Trace tricuspid regurgitation. * No tricuspid stenosis. * Mild pulmonary hypertension. * Estimated RVSP is 37 mmHg. * Estimated RA pressure is 5 mmHg. Pulmonic Valve * Pulmonic valve is not well visualized. Aorta * Normally sized aortic root. Pericardium * The pericardium appears normal. IVC * Normal IVC dimensions and inspiratory collapse. Consult Discharge Plan - Plan Referrals: NONE,PCP [Primary Care Provider] - (4) Leukocytosis Qualifiers: Leukocytosis type: unspecified Qualified Code(s): D72.829 - Elevated white blood cell count, unspecified (5) GERD (gastroesophageal reflux disease) Qualifiers: Esophagitis presence: esophagitis presence not specified Qualified Code(s): K21.9 - Gastro-esophageal reflux disease without esophagitis (7) Depression Qualifiers: Depression Type: other depression Qualified Code(s): F32.89 - Other specified depressive episodes
[2018-09-22 09:52] LABS: Basophils # 0.1 K/mcL (0.0-0.2); Basophils % 0.6 %; Eosinophils # 0.3 K/mcL (0.0-0.6); Eosinophils % 2.9 %; Hemoglobin 15.9 g/dL (12.9-16.9); Immature Granulocytes % 0.5 % (0-4); Lymphocytes # 1.6 K/mcL (0.6-4.6); Lymphocytes % 15.4 %; Mean Corpuscular HGB Conc 33.8 g/dL (31.6-35.5); Mean Corpuscular Hemoglobin 30.6 pg (28.0-33.3); Mean Corpuscular Volume 90.6 fL (83.0-100.0); Mean Platelet Volume 10.4 fL (9.4-12.4); Monocytes # 0.9 K/mcL (0.0-1.3); Neutrophils # 7.5 K/mcL (1.6-8.9); Platelet Count 226 K/mcL (140-400); Red Blood Count 5.19 M/mcL (4.19-5.50); Red Cell Distribution Width 13.2 % (11.5-14.5); Segmented Neutrophils % 71.6 %
[2018-09-22 10:04] LABS: Alanine Aminotransferase 31 Units/L (7-52); Albumin 4.5 g/dL (3.5-5.7); Albumin/Globulin Ratio 1.9 (1.1-2.2); Alkaline Phosphatase 52 Units/L (34-104); Aspartate Amino Transferase 30 Units/L (13-39); BUN/Creatinine Ratio 13 (6-26); Bilirubin,Total 1.7 mg/dL (0.3-1.0); Blood Urea Nitrogen 14 mg/dL (6-20); Calcium 9.5 mg/dL (8.6-10.3); Carbon Dioxide 32 mEq/L (23-29); Chloride 103 mEq/L (98-107); Globulin 2.4 g/dL (2.4-3.5); Glucose 125 mg/dL (70-105); Osmolality,Calculated 288 (280-300); Potassium 4.4 mEq/L (3.5-5.1); Sodium 138 mEq/L (136-145); Total Protein 6.9 g/dL (6.4-8.9); eGFR For Non-African Americans > 60 (> 60)
[2018-09-22] MEDS: NEFAZODONE HCL 200 MG PO SCH (11:27)
[2018-09-22] MEDS: Fluticasone Propionate Nasal 50 MCG/SPRAY BOTTLE NS SCH (11:27)
[2018-09-22] MEDS: Aspirin Enteric Coated 81 MG Tablet PO SCH (11:27)
[2018-09-22] MEDS: Acetaminophen 325 MG TABLET PO PRN (11:28)
--- NOTE | 2018-09-22 14:11 | Cardiology Consult Note ---
<Vick Kennedy R - Last Filed: 09/22/18 14:08> Date of Encounter: 09/22/18 Time of Encounter: 14:08 Assessment and Plan (1) Abnormal stress test Current Visit: Yes Status: Acute 2 day stress test was ordered. Resulted abnormal. Mild inferior ischemia present on perfusion study (reversible mid-basal perfusion defect of small size and mod erate intensity, SDS = 3). No infarct on perfusion study. Stress LVEF >70%. Pharmacologic stress ECG non-diagnostic for ischemia. Frequent PVCs during stress. Intermittent chest pain over the past week, radiation to shoulder blades, associated with dyspnea. Occurs with exertion, improved with rest. Occurs occasionally at rest. No ischemic ECG changes. Troponin negative. Reports LHC ~6 years ago without intervention. Given symptoms and abnormal stress, recommend LHC. R/B/A discussed. Plan for LHC tomorrow. (2) Chest pain Current Visit: Yes Status: Acute As above, LHC tomorrow. Qualifiers: Chest pain type: unspecified Qualified Code(s): R07.9 - Chest pain, unspecified Discussion w patient/family: The assessment and plan as outlined above was discussed with the patient and/or family members who expressed understanding and agreement. All questions were answered. Thank you for involving us in the care of your patient. Please call with any questions. I will discuss all the above with Dr. Laboy and make changes as necessary. History of Present Illness Consult date: 09/22/18 Consult reason: Abnormal stress Chief complaint: chest pain History of present illness: Mr. Cisneros is a 52 year old male w/PMH of GERD, seasonal allergies, and depression presents from the ED w/CC of CP that began approximately 1 week ago and presented as pain in center of chest and left chest that was intermittent sharp and stabbing with squeezing sensation. Symptoms mostly occur with exertion, relieved with rest, but occasionally has pain at rest. Radiation to back, shoulders, neck, and arms. Reports associated shortness of breath. He states he had a LHC ~6 years ago at [facility] without intervention. Troponins negative, 2 day stress test was ordered. Resulted abnormal. Mild inferior ischemia present on perfusion study (reversible mid-basal perfusion defect of small size and moderate intensity, SDS = 3). No infarct on perfusion study. Stress LVEF >70%. Pharmacologic stress ECG non-diagnostic for ischemia. Frequent PVCs during stress. Cardiology consulted for further recs. Past Med Surg Social Fam HX - Past Medical History Medical history: GERD, other Additional medical history: Diverticulitis, seasonal allergies Psychiatric history: anxiety - Past Surgical History Surgical History: appendectomy Additional surgical history: heart cath no stents - Social History Smoking Status: Never smoker Smokeless Tobacco Status: No Alcohol use: none Drug use: none - Family History Father Adopted: [place]: Josh Race: Family Member Ethnicity: Non- Living Status: Age at : 91 Cause of : COPD Hx Family Cardiac Disorders: Yes (AK x2 <50 years of age, Aortic valve replacement @ 70 yo) Hx Family Respiratory Disorders: Yes (Lung disease) Hx Family Cancer: Yes (LIP CANCER) Hx Family GI Disorders: Yes (Double hernia) Hx Family Genitourinary Disorders: Yes (Cystitis) Hx Family Endocrine Disorder: No Hx Family Musculoskeletal Disorders: No Hx Family Neuromuscular Disorders: No Hx Family Neurologic Disorders: No (TIA) Hx Family HEENT Disorders: No Hx Family Autoimmune Disorders: No Hx Family Reproductive Disorders: No Hx Family Psychosocial Disorders: No Hx Family Medical Disorders: No Mother Race: Family Member Ethnicity: Non- Living Status: Age at : 80 Cause of : Liver cancer Hx Family Cardiac Disorders: Yes (CAD) Hx Family Cancer: Yes (Liver) Hx Family Endocrine Disorder: Yes (DM) Brother Race: Family Member Ethnicity: Non- Living Status: Age at : 6 Cause of : Hole in heart Hx Family Cardiac Disorders: Yes (Cardiac anomaly/ at 6 weeks) Sister Race: Family Member Ethnicity: Non- Living Status: Age at : 56 Cause of : DM complications Hx Family Endocrine Disorder: Yes (DM) Medications and Allergies Docusate Sodium [Colace] 100 mg PO HS PRN 09/20/18 [History] Fluticasone Furoate [Flonase Sensimist] 1 spray NS DAILY 09/20/18 [History] Loratadine/Pseudophed (12 HR) [Claritin D (12HR)] 1 tab PO Q12H PRN 09/20/18 [History] Omeprazole [PriLOSEC] 20 mg PO DAILY 09/20/18 [History] Nefazodone HCl 200 mg PO DAILY 09/21/18 [History] Nefazodone HCl 300 mg PO HS 09/21/18 [History] Allergy/AdvReac Type Severity Reaction Status Date / Time metronidazole [From Flagyl] Allergy Vomiting Verified 09/21/18 10:24 All Systems Review: The remainder of the systems were reviewed and are negative - Cardiovascular Cardiovascular: as per HPI, chest pain at rest, chest pain with exertion, dyspnea at rest, dyspnea on exertion, radiating jaw, neck or arm pain - Respiratory Respiratory: dyspnea Physical Examination Vital Signs, Last 4 Hours Temp Pulse Resp BP Pulse Ox 09/22/18 11:55 98.0 F 74 14 117/77 95 Vital Signs Temp Pulse Resp BP Pulse Ox 09/22/18 11:55 98.0 F 74 14 117/77 95 09/22/18 07:48 97.7 F 87 14 130/77 96 09/22/18 03:27 97.8 F 75 16 124/71 99 09/21/18 23:47 97.8 F 80 16 108/71 94 09/21/18 18:37 97.6 F 91 14 112/74 96 09/21/18 15:05 97.5 F L 89 20 113/83 97 Intake and Output 09/21/18 09/22/18 09/22/18 23:59 07:59 15:59 Intake Total 800 / 800 360 / 360 Balance 800 / 800 360 / 360 Intake: Oral 800 / 800 360 / 360 Other: Meal Breakfast Percent of Meal Consumed 100% General: Conversant, No Apparent Distress HEENT: Atraumatic, Normocephaly, Mucus Membranes Moist Neck: No JVD, Normal carotid pulses Cardiac: Reg Rate and Rhythm, Normal S1 and S2, No Murmur Lungs: Normal Breath Sounds, No Wheeze, Rales, Rhonchi Neuro: Alert and responsive, No focal deficits noted Abdomen: Soft, Non-Tender Skin: No rashes noted on visualized skin Musculoskeletal: No Chest Wall Tenderness Extremities: No Clubbing, No Cyanosis, No Edema, Normal Pulses Results 09/22/18 09:29 09/22/18 09:29 Lab Results 09/22/18 09/22/18 09:29 09:29 WBC 10.5 Hgb 15.9 Hct 47.0 Plt Count 226 Sodium 138 Potassium 4.4 Chloride 103 Carbon Dioxide 32 H BUN 14 Creatinine 1.10 Glucose 125 H Calcium 9.5 Total Bilirubin 1.7 H AST 30 ALT 31 Alkaline Phosphatase 52 Short CBC 09/22/18 Range/Units 09:29 WBC 10.5 (4.3-11.1) K/mcL Hgb 15.9 (12.9-16.9) g/dL Hct 47.0 (37.5-50.1) % Plt Count 226 (140-400) K/mcL Neutrophils # 7.5 (1.6-8.9) K/mcL BMP 09/22/18 Range/Units 09:29 Sodium 138 (136-145) mEq/L Potassium 4.4 (3.5-5.1) mEq/L Chloride 103 (98-107) mEq/L Carbon Dioxide 32 H (23-29) mEq/L BUN 14 (6-20) mg/dL Creatinine 1.10 (0.70-1.30) mg/dL Glucose 125 H (70-105) mg/dL Calcium 9.5 (8.6-10.3) mg/dL Liver Function 09/22/18 Range/Units 09:29 Total Bilirubin 1.7 H (0.3-1.0) mg/dL AST 30 (13-39) Units/L ALT 31 (7-52) Units/L Alkaline Phosphatase 52 (34-104) Units/L Albumin 4.5 (3.5-5.7) g/dL Impressions Echocardiogram 09/21/18 23:17 Impressions: LVEF 60%. Mild concentric left ventricular hypertrophy. Mild left ventricular diastolic dysfunction. Normal right ventricular structure and function. 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 Mild mitral regurgitation. Mild pulmonary hypertension. Left Ventricular Wall Motion: Rest Echo Findings All wall segments showed normal motion. Findings: Study Quality * Technically sub-optimal due to poor echocardiographic windows. ECG Findings * Normal sinus rhythm. Left Ventricle * LVEF 60%. * Mild concentric left ventricular hypertrophy. * Mild left ventricular diastolic dysfunction. Right Ventricle * Normal right ventricular structure and function. Left Atrium * Normal left atrial size. Right Atrium * Normal right atrial size. Interatrial Septum * No evidence of PFO by color Doppler. Aortic Valve * Aortic valve not well visualized. * No aortic stenosis. * Trace aortic regurgitation. 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 * Mild mitral regurgitation. * Mildly thickened mitral valve leaflets. Tricuspid Valve * Normal tricuspid valve structure. * Trace tricuspid regurgitation. * No tricuspid stenosis. * Mild pulmonary hypertension. * Estimated RVSP is 37 mmHg. * Estimated RA pressure is 5 mmHg. Pulmonic Valve * Pulmonic valve is not well visualized. Aorta * Normally sized aortic root. Pericardium * The pericardium appears normal. IVC * Normal IVC dimensions and inspiratory collapse. Active Medications Acetaminophen (Tylenol) 650 mg PO Q6HR PRN PRN Reason: Mild Pain/Fever Stop: 03/23/19 00:33 Last Admin: 09/22/18 11:28 Dose: 650 mg Aspirin (Aspirin Ec) 81 mg PO DAILY AMANDEEP Stop: 03/23/19 09:01 Last Admin: 09/22/18 11:27 Dose: 81 mg Docusate Sodium (Colace) 100 mg PO QPM PRN; Protocol PRN Reason: Constipation Stop: 03/23/19 00:27 Fluticasone Propionate (Flonase) 50 mcg NS DAILY [facility] Stop: 03/23/19 09:01 Last Admin: 09/22/18 11:27 Dose: 50 mcg Guaifenesin (Mucinex) 600 mg PO BID PRN PRN Reason: Congestion Stop: 03/23/19 00:28 Guaifenesin (Mucinex) 600 mg PO BID PRN PRN Reason: Cough Stop: 03/23/19 21:44 Last Admin: 09/21/18 21:52 Dose: 600 mg Heparin Sodium (Porcine) (Heparin) 5,000 unit SQ Q8HCO [facility] Stop: 03/23/19 06:01 Last Admin: 09/22/18 06:04 Dose: 5,000 unit Loratadine/Pseudoephedrine Sulfate (Claritin D (12hr)) 1 each PO BID PRN; Protocol PRN Reason: Allergic Symptoms Stop: 03/23/19 00:27 Naloxone HCl (Narcan) 0.4 mg IVP Q2MIN PRN PRN Reason: SEE COMMENTS Stop: 03/23/19 00:33 Nitroglycerin (Nitroglycerin) 0.4 mg SL Q5MIN PRN PRN Reason: Chest Pain Stop: 03/22/19 23:18 Pantoprazole Sodium (Protonix) 40 mg IVP 0630 [facility] Stop: 03/23/19 00:31 Last Admin: 09/22/18 06:04 Dose: 40 mg Pharmacy Profile Note (Patient Taking Own Medication) 1 each PO QAM AMANDEEP Stop: 03/23/19 09:01 Last Admin: 09/22/18 11:27 Dose: Not Given Pharmacy Profile Note (Patient Taking Own Medication) 1.5 each PO HS AMANDEEP Stop: 03/23/19 21:01 Last Admin: 09/21/18 21:50 Dose: 0.5 each - Imaging and Cardiology Stress Test: report reviewed Echo: report reviewed - EKG Interpretation EKG results cardiology: personally reviewed (SR), other (12 hr tele AVG HR 80, SR, no significant pauses or arrhythmias noted.) Consult Discharge Plan - Plan Referrals: Luisa Church, UROLOGIST PHYSICIAN [Partnered Physician] - 09/30/18 1:00 pm () NONE,PCP [Primary Care Provider] - <Ld Laboy - Last Filed: 09/24/18 05:37> Date of Encounter: 09/22/18 Time of Encounter: 18:00 - Attending Attestation I have personally performed a face to face evaluation on this patient. I have reviewed and agree with the care plan. History and Exam by me shows: CC: chest pain HPI: Pt complains of recurrent episdes of mid epigastric chest pain, 8/10 at most severe, provoked by exercise, associated with mild shortness of breath, lasting up to five minutes, relieved with rest over three minutes. Shortness of breath resolves when chest pain sublsides. Pt also reports two episodes of similar pain which occurred after emotional upset. He is pain free at present, resting comfortably. He has not had chest pain since admission, He admits to similar chest pain approximately six years ago, underwent diagnostic LHC at [facility], was reportedliy normal. He underwent stress imaging today which showed reversible ischemia in the mid basilar segments. EF is well preserved at 70% by echo. ROS: Reviewed PMH: Reviewed LABs, Xrays reviewed PE: pt seen and examined, agree with findings as documented. IMP/plan: 1. Chest pain, highly suggestive of CAD, stress positive for reversible ischemia, recomend LHC/possible, risks and benefits discussed, pt elects to proceed, will get on cath scedule at next opening. Assessment and Plan Discussion w patient/family: The assessment and plan as outlined above was discussed with the patient and/or family members who expressed understanding and agreement. All questions were answered. Thank you for involving us in the care of your patient. Please call wi th any questions. History of Present Illness History of present illness: Mr. Cisneros is a 52 year old male All Systems Review: The remainder of the systems were reviewed and are negative Physical Examination Vital Signs, Last 4 Hours Temp Pulse Resp BP Pulse Ox 09/24/18 03:53 98.1 F 73 16 111/74 93 Results 09/23/18 03:25 09/23/18 03:25
[2018-09-22] MEDS: NEFAZODONE PO SCH (21:04)
[2018-09-23 03:41] LABS: Basophils # 0.1 K/mcL (0.0-0.2); Basophils % 0.5 %; Eosinophils # 0.4 K/mcL (0.0-0.6); Eosinophils % 3.8 %; Hematocrit 45.3 % (37.5-50.1); Immature Granulocytes % 0.4 % (0-4); Lymphocytes # 2.2 K/mcL (0.6-4.6); Lymphocytes % 19.4 %; Mean Corpuscular HGB Conc 33.1 g/dL (31.6-35.5); Mean Corpuscular Hemoglobin 30.1 pg (28.0-33.3); Mean Platelet Volume 10.4 fL (9.4-12.4); Monocytes # 1.2 K/mcL (0.0-1.3); Monocytes % 10.9 %; Neutrophils # 7.3 K/mcL (1.6-8.9); Platelet Count 217 K/mcL (140-400); Red Blood Count 4.98 M/mcL (4.19-5.50); Red Cell Distribution Width 13.2 % (11.5-14.5)
[2018-09-23 03:59] LABS: Alanine Aminotransferase 28 Units/L (7-52); Albumin/Globulin Ratio 1.6 (1.1-2.2); Alkaline Phosphatase 48 Units/L (34-104); Aspartate Amino Transferase 24 Units/L (13-39); BUN/Creatinine Ratio 12 (6-26); Bilirubin,Total 1.3 mg/dL (0.3-1.0); Blood Urea Nitrogen 15 mg/dL (6-20); Calcium 9.2 mg/dL (8.6-10.3); Carbon Dioxide 29 mEq/L (23-29); Chloride 105 mEq/L (98-107); Globulin 2.5 g/dL (2.4-3.5); Glucose 121 mg/dL (70-105); Osmolality,Calculated 294 (280-300); Potassium 4.3 mEq/L (3.5-5.1); Sodium 141 mEq/L (136-145); Total Protein 6.5 g/dL (6.4-8.9); eGFR For Non-African Americans > 60 (> 60)
[2018-09-23] MEDS: *HR* Heparin 5,000 UNIT/ML VIAL SQ SCH ×3 (04:59→20:46)
[2018-09-23] MEDS: Pantoprazole 40 MG VIAL IVP SCH (05:00)
[2018-09-23] MEDS: Fluticasone Propionate Nasal 50 MCG/SPRAY BOTTLE NS SCH (10:27)
[2018-09-23] MEDS: Aspirin Enteric Coated 81 MG Tablet PO SCH (10:27)
[2018-09-23] MEDS: NEFAZODONE HCL 200 MG PO SCH (10:27)
[2018-09-23] MEDS ORDERED: Heparin 1,000 UNITS/500 mL 500 ML ONE (13:10)
[2018-09-23] MEDS ORDERED: 0.9 % Sodium Chloride 1,000 ML ONE ×2 (13:10→14:27)
[2018-09-23] MEDS ORDERED: *HR* Heparin 10,000 UNIT/10 ML VIAL ONE (13:10)
[2018-09-23] MEDS ORDERED: ISOVUE-370 200 ML INFUS..BTL ONE (13:10)
[2018-09-23] MEDS ORDERED: Nitroglycerin 1,000 MCG/10 ML VIAL IV ONE (13:10)
[2018-09-23] MEDS ORDERED: *HR* FentaNYL (PF) 100 MCG/2 ML VIAL ONE (14:28)
[2018-09-23] MEDS ORDERED: *HR* Midazolam HCl 2 MG/2 ML VIAL ONE (14:28)
--- NOTE | 2018-09-23 14:28 | Pre-Sedation Evaluation ---
Pre-sedation evaluation - Pre-sedation checklist Date of procedure: 09/23/18 Procedure: C Recent Vitals: Last Vital Signs Temp 98.1 F 09/23/18 11:24 Pulse 75 09/23/18 11:24 Resp 16 09/23/18 11:24 BP 108/76 09/23/18 11:24 Pulse Ox 95 09/23/18 11:24 H&P (including ROS) documented in medical record: Yes Previous reaction to sedatives/anesthetics: No Dietary Status: NPO after Midnight Dentition: full dentition ASA Classification *see protocol: CLASS II-Mild systemic disease Cardiac Registry (Cardio Only) - Functional Capacity Functional Capacity: >=4 METS with symptoms - Clincal Frailty Scale Clinical Frailty Scale: Managing Well
--- NOTE | 2018-09-23 15:05 | Invasive Diagnostic Lab Proc ---
Name: Saqib Cisneros Date of Study: 09/23/2018 Date: 1965 Ht: 66.1in Medical Record#: [id number] Age: 52 Wt: 257.94lb Gender: Male BSA: 2.23 Order #: [id number] BMI: 41.45 Physicians Procedure Physician: Olayinka Kimble MD Referring MD: Referring MD: Staff Name Position Time In [facility] RT (R) Monitor 02:31 PM Leonides Aguirre RN Supply Technician 02:31 PM Gali Lselie RT (R) Scrub 02:31 PM Indications Indication Abnormal Test - Stress Procedures Performed Procedure L HRT ARTERY/VENTRICLE ANGIO Pre-Procedure Checklist Informed consent is complete signed and on chart. H&P is on chart. ID band is on and ID verified with patient. Patient NPO for procedure The procedure was described for the patient and questions were answered. Blood Pressure: 123/72 ECG is on chart. Rhythm: NSR Plan of Care Patient will tolerate the procedure without complications. Adequate level of comfort will be maintained. Hemodynamics will remain stable Patient will recover from procedure without complications. Respiratory function will be maintained. Cardiac rhythm will remain stable. Patient temperature will be maintained. Patient and/or family have verbalized understanding of the procedure. Patient Education Chief Complaint/Reason for Test: Cardiac Cath Developmental Category: Adult (18-64 years) Developmentally Appropriate for Age: Yes Learning Barriers: None Education Needs: Procedure Education Method: Verbal Information Taught: Cardiac Cath Educational Evaluation: Able to repeat information Intravenous Access Time IV Size Location DC'd Fluid/Drip Rate Units RN 08:29 AM 20g 1 09/23" Patent On Arrival Rt Hand 0.9NaCl 25 ml/hr Leonides Aguirre RN Allergies metronidazole Vital Signs Time BP (mmHg) HR (bpm) O2 Sat. RR (bpm) LOC 02:32 PM / % 5 = Fully awake and oriented or at pre-proc level 02:32 PM / % 4 = Oriented but drowsy 02:31 PM 123 / 72 71 100 % 16 02:36 PM 126 / 85 76 95 % 10 02:41 PM 124 / 77 70 99 % 18 02:46 PM 137 / 81 96 99 % 25 02:51 PM 132 / 72 77 99 % 5 Procedural Medications Time Medication Dose Units Method Given By 02:32 PM Oxygen 2 L/min nasal cannula Leonides Aguirre RN 02:32 PM Versed 1 mg Intravenous Leonides Aguirre RN 02:32 PM Fentanyl 50 mcg Intravenous Leonides Aguirre RN 02:37 PM Lidocaine 2% 20 ml Subcutaneous Olayinka Kimble MD ASA Classification: CLASS II- Mild systemic disease (i.e. well-controlled diabetes, hypertension, asthma, cigarette smoking) Ruperto Score Preprocedure Postprocedure Activity 2- Moves 4 extremities sustained head lift Activity 2- Moves 4 extremities sustained head lift Circulation 2- SBP +/= 20 points of pre-anesthetic level Circulation 2- SBP +/= 20 points of pre-anesthetic level Consciousness 2- Awake and alert oriented x 3 Consciousness 2- Awake and alert oriented x 3 O2 Saturation 2- Able to maintain O2 satruation of 92% on room air O2 Saturation 2- Able to maintain O2 satruation of 92% on room air Respiratory 2- Able to deep breathe and cough well Respiratory 2- Able to deep breathe and cough well Total Score 10 Total Score 10 Contrast Agent: Isovue Diagnostic Contrast: 59 ml Total Contrast: 59 ml Fluoro Dose: 5622 mGy Procedure Log Time Note Enter By 02:30 PM CathStat 02:30 PM Vitals capture started with the following parameters, Patient=Adult, Interval=5 min, Initial Szletgjt=340 mmHg, Deflation Rate=5 mmHg, Cuff placed on Right Arm 02:30 PM Recorded ECG: HR=74 Condition=Condition 1 02:31 PM HR=71 bpm, RVLS=464/72 mmhg, EuK6=349.0 %, Resp=16 B/min 02:31 PM Pt arrived to stucco laborer 2 at 14:31 tsites 02:31 PM Emma Cormier RT (R) Position: Monitor Time in: 14:31 tsites 02:31 PM Leonides Aguirre RN Position: Supply Technician Time in: 14:31 tsites 02:31 PM Gali Leslie RT (R) Position: Scrub Time in: 14:31 tsites 02:31 PM Patient charges- Angio tray pack, Navilyst 3mm J, Pulse Oximetry and ACIST tubing and transducer tsites 02:31 PM Case Delayed No tsites 02:31 PM Physician arrived 14:31 tsites 02:31 PM Meet and greet completed tsites 02:31 PM Sign in performed according to hospital policy. Informed consent was obtained. tsites 02:31 PM Procedure start 14:31 tsites 02:32 PM Hair removed from procedure site in holding area using clippers. Bilateral groin prepped with Chloraprep by Gali Leslie (R), then patient was draped. Skin intact. tsites 02:32 PM Time: 14:32 Oxygen on at 2 L/min per nasal cannula by Leonides Aguirre RN tsites 02:32 PM Time: 14:32 Patient comfortable and pain free: Yes tsites 02:32 PM Time: 14:32LOC: 5 = Fully awake and oriented or at pre-proc level tsites 02:32 PM Clinical Presentation: Unstable angina tsites 02:32 PM Time: 14:32 Versed 1 mg Intravenous Given by Leonides Aguirre RN tsites 02:32 PM Time: 14:32 Fentanyl 50 mcg Intravenous Given by Leonides Aguirre RN tsites 02:36 PM HR=76 bpm, RQRK=465/85 mmhg, SpO2=95.0 %, Resp=10 B/min 02:37 PM Pressure channel 1 zeroed. 02:37 PM Time out was performed according to hospital policy. Conscious sedation and anesthesia was achieved (see medication log with in this report above) tsites 02:40 PM Time: 14:37 20 ml Lidocaine 2% to right groin Subcutaneous Given by Olayinka Kimble MD tsites 02:40 PM Micro-Introducer Kit utilized for sheath placement tsites 02:40 PM Access obtained by percutaneous puncture. 4Fr 10cm Micro kit sheath placed in right Femoral artery. [id number] tsites 02:40 PM Bolus angiogram of right Femoral complete: 2 ml/sec for a total of 4 mls tsites 02:41 PM HR=70 bpm, WDNZ=880/77 mmhg, SpO2=99.0 %, Resp=18 B/min, EtCO2=34 mmHg 02:41 PM Sheath exchanged for a 6 Fr 11 cm Terumo [place] sheath [id number] tsites 02:41 PM 0.035 145cm Navilyst 3mmJ wire [id number] tsites 02:42 PM RCA angiography performed in multiple views. tsites 02:42 PM Recorded Pressure: Ao, HR=70, Condition=Condition 1 (Aorta) Ao 101/81/91 02:42 PM 5Fr FR 4 catheter inserted over the wire DNC tsites 02:42 PM wire inserted catheter removed tsites 02:43 PM 5Fr FL 4 catheter inserted over the wire DNC tsites 02:43 PM LCA angiography performed in multiple views. tsites 02:44 PM Recorded Pressure: Ao, HR=80, Condition=Condition 1 (Aorta) Ao 98/78/89 02:45 PM Recorded Pressure: Ao, HR=77, Condition=Condition 1 (Aorta) Ao 104/80/92 02:46 PM HR=96 bpm, SYVX=503/81 mmhg, SpO2=99 %, Resp=25 B/min 02:46 PM wire inserted catheter removed tsites 02:47 PM Time: 14:32LOC: 4 = Oriented but drowsy tsites 02:47 PM Time: 14:32 Patient comfortable and pain free: Yes tsites 02:47 PM 5Fr Pigtail catheter inserted over the wire DNC tsites 02:47 PM Catheter crossed the aortic valve and was selectively placed in the left ventricle. Pressures recorded on pullback for left heart catheterization. tsites 02:48 PM Recorded Pressure: LV, HR=85, Condition=Condition 1 (Left Ventricle) LV 118/20/20 02:48 PM Recorded Pressure: LV, Ao, HR=70, Condition=Condition 1 (Left Ventricle) LV 118/20/20, (Aorta) Ao 122/72/94 02:49 PM wire inserted catheter removed tsites 02:49 PM Coronary Dominance: Left tsites 02:49 PM Lesion found in Proximal LAD. Pre Stenosis: 40 Pre MARLENE Flow: tsites 02:49 PM Proximal Left Anterior Descending Coronary Artery with 40% stenosis. If graft is supplying this territory, 0 % stenosis. tsites 02:49 PM Procedure completed at 14:49 09/23/2018 tsites 02:49 PM Did you address MARLENE flow and Dominance? Yes tsites 02:50 PM Sign out completed: Radiation Dose 607 mGy, 5622 cGy/cm2 Fluoro Time: 2.0 Isovue 370 - 200ml contrast 59 ml given by Olayinka Kimble MD. Complications: None. 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 Cardiac Rehab Consult needed: NoConfirmed administered medications: Yes tsites 02:50 PM Isovue 370 - 200ml,1 Bottle(s) used. tsites 02:50 PM Arterial sheath pulled, Mynx closure device used and was Successful S/N. tsites 02:50 PM Estimated Blood Loss: minimal tsites 02:50 PM Post ECG NSR tsites 02:50 PM Post Blood Pressure 137/81 tsites 02:50 PM 14:50 Post Pulses Bilateral DP & PT 2+ tsites 02:50 PM Information taught Cardiac Cath and Mynx tsites 02:51 PM Education needs Procedure, Plan of Care, and Responsibilities of Patient in Care tsites 02:51 PM Learning barriers :None tsites 02:51 PM HR=77 bpm, CZEX=643/72 mmhg, SpO2=99.0 %, Resp=5 B/min 02:51 PM Education Methods Verbal tsites 02:51 PM Education evaluation Able to repeat information tsites 02:51 PM Site status No bleeding/hematoma - Rt Groin as reported by Gali Leslie RT (R) at 14:51 tsites 02:51 PM Opsite applied tsites 02:51 PM Delay to floor No tsites 02:51 PM no family at this time tsites 02:53 PM Report given to ja LOREDO Pt taken to 3B Room #11. 14:53 tsites Complications Complication None Hemodynamics Pressures Site Systolic/A Wave Diastolic/V Wave Mean AO 101 81 91 AO 98 78 89 AO 104 80 92 LV 118 20 20 LV 118 20 20 AO 122 72 94 Post Procedure Information Blood Pressure: 137/81 mmHg Rhythm: NSR Post procedural instructions were given Closure Device Time Device Success/Fail 09/23/2018 2:54:00 PM MynxGrip Successful Site Checks Time Location Status Staff Sheath In? Note 02:51 PM Rt Groin No bleeding/hematoma Gali Leslie RT (R) Pulses Time Site Pre-Procedure Post-Procedure Note 09/23/2018 8:30:00 AM Bilateral DP & PT 2+ 09/23/2018 8:30:00 AM Bilateral radial 2+ 2:50:00 PM Bilateral DP & PT 2+ Updated by Emma Cormier RT (R) on 09/23/2018 2:56:15 PM RT Cierra electronically signed on 09/23/2018 2:59:19 PM with status of Final
--- NOTE | 2018-09-23 15:33 | Event Note ---
Date of Encounter: 09/23/18 Time of Encounter: 15:30 - Cardiology Event Note Per discussion with Dr. Kimble, catheterization showed ostial LAD 40% nonobstructive lesion. Recommendations for medical management and risk factor modification. On aspirin. LDL 51. Can evaluate an outpatient setting to traditional beta maria g and statin if clinically warranted. Cardiology will sign off, reconsult as needed, follow-up arranged.
--- NOTE | 2018-09-23 16:50 | Internal Med Progress Note ---
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 The cath report discussed with pt. - Exam Vitals: Temp Pulse Resp BP Pulse Ox 98.1 F 73 16 115/76 98 09/23/18 11:24 09/23/18 15:45 09/23/18 15:45 09/23/18 15:45 09/23/18 15:45 Exam: PHYSICAL EXAMINATION: GENERAL APPEARANCE: The patient is alert, oriented and in no acute distress. HEENT: Head is normocephalic. The sinuses are nontender. Pupils are equal and reactive. The nares are patent. Oropharynx clear without lesions. NECK: Supple without lymphadenopathy. HEART: Regular rate and rhythm. LUNGS: No crackles or wheezes are heard. ABDOMEN: Soft, nontender, nondistended with good bowel sounds heard. Inguinal area is normal. EXTREMITIES: Without cyanosis, clubbing or edema. NEUROLOGICAL: Gross nonfocal. SKIN: Warm and dry without any rash. - Assessment and Plan (1) Unstable angina pectoris Current Visit: Yes Status: Acute Assessment and Plan: 09/22 52-year-old gentleman with previous history of CAD, family history of heart disease, obesity presented with left-sided chest pain, intermittent, associated with weakness, diaphoresis, and shortness breath. Patient had a left-sided heart catheter 6 years ago. Echo performed yesterday and the patient will finish the stress test today. 09/23 Pt cath report showed ostial LAD 40% nonobstructive lesion. cardiology Recommended medical management and risk factor modification. LDL 51, pt already on asa. BP controlled. outpatient f/u with cardiology for BB and statin treatment. dc home tomorrow. (2) SOB (shortness of breath) Current Visit: Yes Status: Acute Assessment and Plan: Acute SOB accompanying CP sx. Pt. denies home O2 use, hx/dx of COPD, or CHF. Supplemental O2 w/titration and SpO2 monitoring. Respiratory panel positive for coronavirus. Patient cough and congestion have been relieved by Mucinex. (3) Generalized weakness Current Visit: Yes Status: Acute Assessment and Plan: Acute and generalized weakness accompanying CP sx. Pt. denies hx or dx of COPD or CHF. ECHO 09/21/2018 showed normal EF and mild LVDD, no fluid overload. (4) Leukocytosis Current Visit: Yes Status: Resolved (5) GERD (gastroesophageal reflux disease) Current Visit: No Status: Chronic Assessment and Plan: improved,continue home Prilosec. (6) Seasonal allergies Current Visit: Yes Status: Chronic Assessment and Plan: Hx of chronic seasonal allergies. Continue pts. Claritin-D and Flonase. (7) Depression Current Visit: Yes Status: Chronic Assessment and Plan: Hx of chronic depression. Continue pts. Nefazodone. (8) Hx MRSA infection Current Visit: Yes Status: Ruled-out Assessment and Plan: MRSA screening negative. (9) DVT prophylaxis Current Visit: Yes Status: Acute Assessment and Plan: Heparin 5,000 units SQ Q8HR for DVT prophylaxis. Monitor pt. for signs of bleeding. - Time Spent with Patient Total time spent is greater than 50% in coordination of care (as documented) at patient's floor/unit and/or counseling patient: Greater than 35 minutes Plan of Care Discussed with: patient Internal Medicine: Result - Labs CBC & Chem 7: 09/23/18 03:25 09/23/18 03:25 Labs: Short CBC 09/23/18 Range/Units 03:25 WBC 11.1 (4.3-11.1) K/mcL Hgb 15.0 (12.9-16.9) g/dL Hct 45.3 (37.5-50.1) % Plt Count 217 (140-400) K/mcL Neutrophils # 7.3 (1.6-8.9) K/mcL BMP 09/23/18 03:25 Sodium 141 Potassium 4.3 Chloride 105 Carbon Dioxide 29 BUN 15 Creatinine 1.24 Glucose 121 H Calcium 9.2 Liver Function 09/23/18 Range/Units 03:25 Total Bilirubin 1.3 H (0.3-1.0) mg/dL AST 24 (13-39) Units/L ALT 28 (7-52) Units/L Alkaline Phosphatase 48 (34-104) Units/L Albumin 4.0 (3.5-5.7) g/dL - ABG Interpretation ABG results: PT/INR, D-dimer PT 12.4 Seconds (9.4-12.1) H 09/20/18 20:20 Consult Discharge Plan - Plan Referrals: Church,Luisa L, REFRACTORY MANAGER [Partnered Physician] - 09/30/18 1:00 pm () NONE,PCP [Primary Care Provider] - (4) Leukocytosis Qualifiers: Leukocytosis type: unspecified Qualified Code(s): D72.829 - Elevated white blood cell count, unspecified (5) GERD (gastroesophageal reflux disease) Qualifiers: Esophagitis presence: esophagitis presence not specified Qualified Code(s): K21.9 - Gastro-esophageal reflux disease without esophagitis (7) Depression Qualifiers: Depression Type: other depression Qualified Code(s): F32.89 - Other specified depressive episodes
[2018-09-23] MEDS: Acetaminophen 325 MG TABLET PO PRN (17:40)
[2018-09-23] MEDS: NEFAZODONE PO SCH (20:47)
[2018-09-24] MEDS: *HR* Heparin 5,000 UNIT/ML VIAL SQ SCH (05:38)
[2018-09-24] MEDS: Pantoprazole 40 MG VIAL IVP SCH (05:38)
[2018-09-24 06:40] VITALS: BP 132/85
[2018-09-24] MEDS: Aspirin Enteric Coated 81 MG Tablet PO SCH (07:53)
[2018-09-24] MEDS: NEFAZODONE HCL 200 MG PO SCH (07:54)
[2018-09-24] MEDS: Fluticasone Propionate Nasal 50 MCG/SPRAY BOTTLE NS SCH (07:54)
--- NOTE | 2018-09-24 08:28 | Discharge Summary ---
- NOTES TO OUTPATIENT PROVIDER Notes to Outpatient Provider: f/u with PCP within a week. f/u with cardiology within 2 weeks. Orders not resulted at time of discharge: Pending orders 09/21/18 03:17 Culture,Blood [BC] AM 0400 09/21/18 09:45 NM ammon perf SPECT multi [NM] Routine Date of Encounter: 09/24/18 Time of Encounter: 08:25 - Discharge Diagnosis (1) Unstable angina pectoris Priority: Primary Status: Acute (2) SOB (shortness of breath) Priority: Primary Status: Acute (3) Generalized weakness Priority: Primary Status: Acute (4) Leukocytosis Priority: Primary Status: Resolved Qualifiers: Leukocytosis type: unspecified Qualified Code(s): D72.829 - Elevated white blood cell count, unspecified (5) GERD (gastroesophageal reflux disease) Priority: Secondary Status: Chronic Qualifiers: Esophagitis presence: esophagitis presence not specified Qualified Code(s): K21.9 - Gastro-esophageal reflux disease without esophagitis (6) Seasonal allergies Priority: Secondary Status: Chronic (7) Depression Priority: Secondary Status: Chronic Qualifiers: Depression Type: other depression Qualified Code(s): F32.89 - Other specified depressive episodes (8) Hx MRSA infection Priority: Secondary Status: Ruled-out (9) DVT prophylaxis Priority: Primary Status: Acute Hospital course: Mr. Cisneros is a 52 year old male w/PMH of GERD, seasonal allergies, and depression presents from the ED w/CC of CP that began approximately 1 week ago and presented as pain in center of chest and left chest that was intermittent sharp and stabbing with squeezing sensation. Patient reports symptoms came on at rest as well as while he was exerting himself. Intermittent. Radiation to back, shoulders, neck, and arms. No alleviating or aggravating factors. Associated symptoms: Weakness, diaphoresis, and shortness of breath. Patient denies previous diagnoses of COPD or CHF. Similar symptoms 6 years ago when patient had heart catheterization with no stents placed. Patient also reports history of poorly controlled GERD and recent cough. Patient reports diagnosis of MRSA within bilateral nasal cavities 3-4 weeks ago but denies recent illness, fever, chills, nausea, vomiting, headache, changes in vision, unusual bleeding, abdominal pain, diarrhea, constipation, dizziness, lightheadedness, numbness, tingling, pre-syncope, or syncope. 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 Nuclear stress test showed mild inferior ischemia present on perfusion study (reversible mid-basal perfusion defect of small size and moderate intensity,SDS = 3) . No infarct on perfusion study. Stress LVEF >70%. Pharmacologic stress ECG non-diagnostic for ischemia. Frequent PVCs during stress. He had a left cardiac heart cath on 09/23, which showed 40% non- obstructive stenosis of LAD ostial. Cardiology recommended medical management and further risk modification. Pt BP was well controlled. His lipid panel showed LDL 51, and normal HDL. Weight control, active life style, and no smoking were discussed with patient. He will be discharged home today and f/u with PCP and cardiology as scheduled. Discharge discussed with: patient Time spent discussing smoking cessation with patient: more than 10 minutes - Time Spent with Patient Total time spent providing and/or coordinating discharge services: 45 mins. Greater than 30 minutes - Discharge Medications Prescriptions: Aspirin Enteric Coated [Aspirin EC] 81 mg PO DAILY #30 tablet. Home Medications: Docusate Sodium [Colace] 100 mg PO HS PRN 09/20/18 [History] Fluticasone Furoate [Flonase Sensimist] 1 spray NS DAILY 09/20/18 [History] Loratadine/Pseudophed (12 HR) [Claritin D (12HR)] 1 tab PO Q12H PRN 09/20/18 [History] Omeprazole [PriLOSEC] 20 mg PO DAILY 09/20/18 [History] Nefazodone HCl 200 mg PO DAILY 09/21/18 [History] Nefazodone HCl 300 mg PO HS 09/21/18 [History] Aspirin Enteric Coated [Aspirin EC] 81 mg PO DAILY #30 tablet. 09/24/18 [Rx] Allergies/Adverse Reactions: Allergy/AdvReac Type Severity Reaction Status Date / Time metronidazole [From Flagyl] Allergy Vomiting Verified 09/21/18 10:24 Date of admission: 09/22/18 13:21 Primary care physician: PCP NONE Consults: 09/21/18 00:34 Consult to Stock Counter [CONS] Routine Reason for SW Consult: Please assess patient for possible home needs for po st-discharge planning. 09/22/18 13:19 Consult to Cardiology [CONS] Routine Comment: Consulting Provider: Gurpreet Hinojosa Reason for Consult: abnormal stress test Call Completed: Yes Anticipated date of discharge: 09/24/18 - Constitutional Vitals: Temp Pulse Resp BP Pulse Ox 97.7 F 82 16 132/85 96 09/24/18 06:39 09/24/18 06:39 09/24/18 06:39 09/24/18 06:39 09/24/18 07:59 General appearance: Present: cooperative, A&O X 3, morbidly obese, pleasant, no acute distress, answers questions appropriately Exam: PHYSICAL EXAMINATION: GENERAL APPEARANCE: The patient is alert, oriented and in no acute distress. HEENT: Head is normocephalic. The sinuses are nontender. Pupils are equal and reactive. The nares are patent. Oropharynx clear without lesions. NECK: Supple without lymphadenopathy. HEART: Regular rate and rhythm. LUNGS: No crackles or wheezes are heard. ABDOMEN: Soft, nontender, nondistended with good bowel sounds heard. Inguinal area is normal. EXTREMITIES: Without cyanosis, clubbing or edema. NEUROLOGICAL: Gross nonfocal. SKIN: Warm and dry without any rash. - Patient Status Disposition: Home, Self-Care Condition: Good Functional capacity at discharge: independent ambulation Overall status at discharge: patient is progressing back to baseline - Discharge Instructions Follow Up With: Luisa Church CNP [Partnered Physician] - 09/30/18 1:00 pm () NONE,PCP [Primary Care Provider] - - Diet and Activity Activity: increase activity as tolerated Diet: advance to your usual diet
== END 2018-09-24 10:10 | disposition home or self-care (01) | DRG 287 ==
LOC: EMEROOARM 19:37 → 3BNU 19:37
PROVIDERS: ADMIT Internal Medicine; ATTEND Internal Medicine

== ENCOUNTER 2019-09-03 20:30 | Observation (INO) ==
[2019-09-03] MEDS ORDERED: Nitroglycerin 0.4 MG TAB.SUBL SL PRN (20:54)
[2019-09-03] MEDS ORDERED: Aspirin 81 MG TAB.CHEW PO ONE (20:54)
[2019-09-03 21:15] LABS: Basophils # 0.1 K/mcL (0.0-0.2); Basophils % 0.6 %; Eosinophils # 0.4 K/mcL (0.0-0.6); Eosinophils % 3.4 %; Hematocrit 43.8 % (37.5-50.1); Immature Granulocytes % 0.3 % (0-4); Lymphocytes # 2.2 K/mcL (0.6-4.6); Lymphocytes % 19.2 %; Mean Corpuscular HGB Conc 34.2 g/dL (31.6-35.5); Mean Corpuscular Hemoglobin 30.7 pg (28.0-33.3); Mean Corpuscular Volume 89.6 fL (83.0-100.0); Monocytes % 8.6 %; Neutrophils # 7.9 K/mcL (1.6-8.9); Platelet Count 244 K/mcL (140-400); Red Blood Count 4.89 M/mcL (4.19-5.50); Red Cell Distribution Width 13.3 % (11.5-14.5); Segmented Neutrophils % 67.9 %; White Blood Count 11.6 K/mcL (4.3-11.1)
[2019-09-03] MEDS ORDERED: Ipratropium/Albuterol Neb 3 ML IH ONE (21:17)
[2019-09-03 21:22] LABS: INR 1.1; Prothrombin Time 12.5 Seconds (9.4-12.1)
[2019-09-03 21:25] LABS: Activated Partial Thrombo Time 34.1 Seconds (26.0-36.0)
[2019-09-03 21:39] LABS: BUN/Creatinine Ratio 14 (6-26); Blood Urea Nitrogen 17 mg/dL (6-20); Calcium 8.6 mg/dL (8.6-10.3); Carbon Dioxide 28 mEq/L (23-29); Chloride 107 mEq/L (98-107); Glucose 97 mg/dL (70-105); Osmolality,Calculated 287 (280-300); Potassium 4.3 mEq/L (3.5-5.1); Sodium 138 mEq/L (136-145); eGFR For African Americans > 60 (> 60); eGFR For Non-African Americans > 60 (> 60)
[2019-09-03 21:40] LABS: Troponin I < 0.03 ng/mL (< 0.04)
[2019-09-04] MEDS ORDERED: Naloxone 0.4 MG/ML INJ IVP PRN (01:08)
[2019-09-04 03:12] LABS: Basophils # 0.1 K/mcL (0.0-0.2); Basophils % 0.7 %; Eosinophils # 0.4 K/mcL (0.0-0.6); Eosinophils % 4.1 %; Hemoglobin 14.9 g/dL (12.9-16.9); Immature Granulocytes % 0.5 % (0-4); Lymphocytes # 2.5 K/mcL (0.6-4.6); Lymphocytes % 23.9 %; Mean Corpuscular HGB Conc 34.7 g/dL (31.6-35.5); Mean Corpuscular Hemoglobin 30.9 pg (28.0-33.3); Mean Corpuscular Volume 89.2 fL (83.0-100.0); Monocytes % 9.6 %; Neutrophils # 6.4 K/mcL (1.6-8.9); Platelet Count 237 K/mcL (140-400); Red Blood Count 4.82 M/mcL (4.19-5.50); Red Cell Distribution Width 13.3 % (11.5-14.5); Segmented Neutrophils % 61.2 %; White Blood Count 10.5 K/mcL (4.3-11.1)
[2019-09-04 03:32] LABS: BUN/Creatinine Ratio 15 (6-26); Blood Urea Nitrogen 17 mg/dL (6-20); Calcium 8.7 mg/dL (8.6-10.3); Carbon Dioxide 28 mEq/L (23-29); Chloride 106 mEq/L (98-107); Glucose 108 mg/dL (70-105); Osmolality,Calculated 290 (280-300); Potassium 3.7 mEq/L (3.5-5.1); Sodium 139 mEq/L (136-145); eGFR For African Americans > 60 (> 60); eGFR For Non-African Americans > 60 (> 60)
[2019-09-04] MEDS: *HR* Heparin 5,000 UNIT/ML VIAL SQ SCH ×2 (05:06→17:42)
[2019-09-04] MEDS ORDERED: Regadenoson 0.4 MG/5 ML SYRINGE IVP ONE (09:03)
[2019-09-04 09:41] LABS: Troponin I < 0.03 ng/mL (< 0.04)
[2019-09-04 09:50] LABS: Chol/HDL Ratio 1.9 (0-4.9); Cholesterol 85 mg/dL (< 200); HDL Cholesterol 45 mg/dL (40-59); LDL Cholesterol,Calculated 32 mg/dL (0-99); Triglycerides 41 mg/dL (< 150)
[2019-09-04] MEDS: Aspirin Enteric Coated 81 MG Tablet PO SCH (12:14)
[2019-09-04] MEDS: Fluticasone Propionate Nasal 50 MCG/SPRAY BOTTLE NS SCH (12:16)
[2019-09-04] MEDS: NEFAZODONE HCL 200 MG PO SCH (12:17)
[2019-09-04] MEDS ORDERED: NEFAZODONE HCL PO SCH (21:00)
[2019-09-04] MEDS ORDERED: Chloraseptic Spray 177 ML BOTTLE MM PRN (21:57)
[2019-09-05] MEDS: *HR* Heparin 5,000 UNIT/ML VIAL SQ SCH (05:43)
[2019-09-05 08:07] VITALS: BP 131/81
[2019-09-05] MEDS: Aspirin Enteric Coated 81 MG Tablet PO SCH (08:07)
[2019-09-05] MEDS: NEFAZODONE HCL 200 MG PO SCH (08:07)
[2019-09-05] MEDS: Fluticasone Propionate Nasal 50 MCG/SPRAY BOTTLE NS SCH (08:08)
== END 2019-09-05 12:15 | disposition home or self-care (01) ==
LOC: EMEROOARM 20:30 → 3BNU 20:30
PROVIDERS: ADMIT Internal Medicine; ATTEND Internal Medicine

== ENCOUNTER 2020-08-18 21:22 | Observation (INO) ==
[2020-08-18 22:28] LABS: Basophils # 0.1 K/mcL (0.0-0.2); Basophils % 0.5 %; Eosinophils # 0.4 K/mcL (0.0-0.6); Eosinophils % 2.8 %; Hematocrit 47.3 % (37.5-50.1); Hemoglobin 15.8 g/dL (12.9-16.9); Immature Granulocytes % 0.5 % (0-4); Lymphocytes % 22.9 %; Mean Corpuscular HGB Conc 33.4 g/dL (31.6-35.5); Mean Corpuscular Hemoglobin 30.3 pg (28.0-33.3); Mean Corpuscular Volume 90.8 fL (83.0-100.0); Mean Platelet Volume 10.5 fL (9.4-12.4); Monocytes # 1.2 K/mcL (0.0-1.3); Monocytes % 8.9 %; Neutrophils # 8.4 K/mcL (1.6-8.9); Platelet Count 234 K/mcL (140-400); Red Blood Count 5.21 M/mcL (4.19-5.50); Red Cell Distribution Width 13.1 % (11.5-14.5); Segmented Neutrophils % 64.4 %
[2020-08-18 22:52] LABS: BUN/Creatinine Ratio 13 (6-26); Blood Urea Nitrogen 15 mg/dL (6-20); Calcium 9.2 mg/dL (8.6-10.3); Carbon Dioxide 26 mEq/L (23-29); Chloride 105 mEq/L (98-107); Creatine Kinase 109 Units/L (30-223); Glucose 85 mg/dL (70-105); Osmolality,Calculated 290 (280-300); Potassium 3.9 mEq/L (3.5-5.1); Sodium 140 mEq/L (136-145); eGFR For African Americans > 60 (> 60); eGFR For Non-African Americans > 60 (> 60)
[2020-08-18 22:53] LABS: Troponin I < 0.03 ng/mL (< 0.04)
[2020-08-19] MEDS ORDERED: Aspirin 81 MG TAB.CHEW PO ONE (00:42)
[2020-08-19] MEDS ORDERED: Naloxone 0.4 MG/ML INJ IVP PRN (01:43)
[2020-08-19] MEDS ORDERED: Ondansetron 4 MG/2 ML VIAL IVP PRN (01:43)
[2020-08-19] MEDS ORDERED: Acetaminophen 325 MG TABLET PO PRN (01:43)
[2020-08-19 05:34] LABS: Basophils # 0.1 K/mcL (0.0-0.2); Basophils % 0.5 %; Eosinophils # 0.3 K/mcL (0.0-0.6); Eosinophils % 2.6 %; Hematocrit 46.4 % (37.5-50.1); Hemoglobin 15.5 g/dL (12.9-16.9); Immature Granulocytes % 0.4 % (0-4); Lymphocytes # 2.5 K/mcL (0.6-4.6); Lymphocytes % 23.6 %; Mean Corpuscular HGB Conc 33.4 g/dL (31.6-35.5); Mean Corpuscular Hemoglobin 30.3 pg (28.0-33.3); Mean Corpuscular Volume 90.6 fL (83.0-100.0); Mean Platelet Volume 10.6 fL (9.4-12.4); Monocytes % 9.6 %; Neutrophils # 6.8 K/mcL (1.6-8.9); Platelet Count 220 K/mcL (140-400); Red Blood Count 5.12 M/mcL (4.19-5.50); Red Cell Distribution Width 13.2 % (11.5-14.5); Segmented Neutrophils % 63.3 %; White Blood Count 10.7 K/mcL (4.3-11.1)
[2020-08-19 05:37] LABS: INR 1.2; Prothrombin Time 14.3 Seconds (9.4-12.1)
[2020-08-19 05:57] LABS: BUN/Creatinine Ratio 14 (6-26); Blood Urea Nitrogen 15 mg/dL (6-20); Calcium 9.1 mg/dL (8.6-10.3); Carbon Dioxide 25 mEq/L (23-29); Chloride 105 mEq/L (98-107); Glucose 94 mg/dL (70-105); Magnesium 1.8 mg/dL (1.6-2.6); Osmolality,Calculated 291 (280-300); Potassium 3.9 mEq/L (3.5-5.1); Sodium 140 mEq/L (136-145); Troponin I < 0.03 ng/mL (< 0.04); eGFR For African Americans > 60 (> 60); eGFR For Non-African Americans > 60 (> 60)
[2020-08-19] MEDS ORDERED: Aspirin Enteric Coated 81 MG Tablet PO SCH (09:00)
[2020-08-19] MEDS ORDERED: Regadenoson 0.4 MG/5 ML SYRINGE IVP ONE (09:31)
[2020-08-19] MEDS ORDERED: NEFAZODONE HCL 200 MG PO SCH (11:00)
[2020-08-19 12:14] VITALS: BP 137/71
[2020-08-19] MEDS ORDERED: NEFAZODONE HCL PO SCH (21:00)
== END 2020-08-19 15:32 | disposition home or self-care (01) ==
LOC: 3BNU 21:22 → EMEROOARM 21:22 → SUATTDRO 08-19 01:21 → 3BNU 08-19 01:26
PROVIDERS: ADMIT Family Medicine; ATTEND Internal Medicine

== ENCOUNTER 2021-08-11 16:40 | Observation (INO) ==
[2021-08-11 20:30] LABS: Basophils # 0.1 K/mcL (0.0-0.2); Basophils % 0.3 %; Eosinophils # 0.2 K/mcL (0.0-0.6); Hematocrit 48.1 % (37.5-50.1); Hemoglobin 15.9 g/dL (12.9-16.9); Immature Granulocytes % 0.7 % (0-4); Lymphocytes # 1.7 K/mcL (0.6-4.6); Lymphocytes % 7.7 %; Mean Corpuscular HGB Conc 33.1 g/dL (31.6-35.5); Mean Corpuscular Hemoglobin 29.4 pg (28.0-33.3); Mean Corpuscular Volume 89.1 fL (83.0-100.0); Mean Platelet Volume 10.9 fL (9.4-12.4); Monocytes # 1.6 K/mcL (0.0-1.3); Monocytes % 7.5 %; Neutrophils # 18.1 K/mcL (1.6-8.9); Platelet Count 315 K/mcL (140-400); Red Cell Distribution Width 12.8 % (11.5-14.5); Segmented Neutrophils % 82.8 %; White Blood Count 21.9 K/mcL (4.3-11.1)
[2021-08-11 20:42] LABS: Bilirubin,Urine Negative (Negative); Blood,Urine Small (Negative); Clarity,Urine Clear (Clear); Color,Urine Light-Yellow (Yellow); Glucose,Urine (UA) Normal (Normal); Hyaline Casts,Urine Few per lpf (None Seen); Ketones,Urine 40 mg/dL (Negative); Leukocyte Esterase,Urine Negative (Negative); Mucus,Urine Few per lpf (None-Few); Nitrite,Urine Negative (Negative); PH,Urine 5.5 pH Units (5.0-8.0); Protein,Urine Trace mg/dL (Neg-Trace); RBC,Urine 0-3 per hpf (0-3); Specific Gravity,Urine 1.024 (1.010-1.025); Urobilinogen,Urine Normal (Normal); WBC,Urine 0-3 per hpf (0-3)
[2021-08-11 20:56] LABS: Alanine Aminotransferase 25 Units/L (7-52); Albumin 4.3 g/dL (3.5-5.7); Albumin/Globulin Ratio 1.1 (1.1-2.2); Alkaline Phosphatase 83 Units/L (34-104); Amylase 166 Units/L (29-103); Aspartate Amino Transferase 21 Units/L (13-39); BUN/Creatinine Ratio 13 (6-26); Bilirubin,Direct 0.2 mg/dL (0.0-0.2); Bilirubin,Indirect 0.9 mg/dL (0.0-1.0); Bilirubin,Total 1.1 mg/dL (0.3-1.0); Blood Urea Nitrogen 15 mg/dL (6-20); Calcium 9.3 mg/dL (8.6-10.3); Carbon Dioxide 24 mEq/L (23-29); Chloride 99 mEq/L (98-107); Globulin 3.8 g/dL (2.4-3.5); Glucose 115 mg/dL (70-105); Lipase 187 Units/L (11-82); Osmolality,Calculated 284 (280-300); Potassium 4.5 mEq/L (3.5-5.1); Sodium 136 mEq/L (136-145); Total Protein 8.1 g/dL (6.4-8.9); eGFR For African Americans > 60 (> 60); eGFR For Non-African Americans > 60 (> 60)
[2021-08-11] MEDS ORDERED: Isovue-370 500 ML BOTTLE IVP ONE (21:15)
[2021-08-11] MEDS ORDERED: Morphine Sulfate 2 MG/ML SYRINGE IVP ONE (22:12)
[2021-08-11] MEDS ORDERED: 0.9 % Sodium Chloride 1,000 ML IV ONE (22:12)
[2021-08-11] MEDS ORDERED: Ondansetron 4 MG/2 ML VIAL IVP ONE (22:12)
[2021-08-11 23:50] LABS: Ethanol < 10 mg/dL (Less than 10)
[2021-08-12 00:23] LABS: Triglycerides 46 mg/dL (< 150)
[2021-08-12] MEDS ORDERED: Morphine Sulfate 2 MG/ML SYRINGE IVP ONE (01:31)
[2021-08-12] MEDS ORDERED: Naloxone 0.4 MG/ML INJ IVP PRN (03:26)
[2021-08-12] MEDS ORDERED: 0.9 % Sodium Chloride 1,000 ML IVC SCH (03:30)
[2021-08-12 04:39] LABS: Influenza A PCR Negative (Negative); Influenza B PCR Negative (Negative); Resp. Syncytial Virus PCR Negative (Negative)
[2021-08-12 04:41] LABS: Hematocrit 43.3 % (37.5-50.1); Hemoglobin 14.4 g/dL (12.9-16.9); Mean Corpuscular HGB Conc 33.3 g/dL (31.6-35.5); Mean Corpuscular Hemoglobin 29.9 pg (28.0-33.3); Mean Platelet Volume 11.1 fL (9.4-12.4); Platelet Count 274 K/mcL (140-400); Red Blood Count 4.81 M/mcL (4.19-5.50); Red Cell Distribution Width 12.8 % (11.5-14.5); White Blood Count 23.2 K/mcL (4.3-11.1)
[2021-08-12 04:42] LABS: SARS-CoV-2 by PCR (In House) Negative (Negative)
[2021-08-12 05:06] LABS: BUN/Creatinine Ratio 12 (6-26); Blood Urea Nitrogen 12 mg/dL (6-20); Calcium 8.9 mg/dL (8.6-10.3); Carbon Dioxide 26 mEq/L (23-29); Chloride 98 mEq/L (98-107); Cholesterol 86 mg/dL (< 200); Glucose 143 mg/dL (70-105); HDL Cholesterol 44 mg/dL (40-59); LDL Cholesterol,Calculated 35 mg/dL (< 100); Magnesium 1.8 mg/dL (1.6-2.6); Osmolality,Calculated 284 (280-300); Potassium 4.1 mEq/L (3.5-5.1); Sodium 136 mEq/L (136-145); Triglycerides 35 mg/dL (< 150); eGFR For African Americans > 60 (> 60); eGFR For Non-African Americans > 60 (> 60)
[2021-08-12 05:07] LABS: Troponin I < 0.03 ng/mL (< 0.04)
[2021-08-12] MEDS ORDERED: Famotidine 20 MG/2 ML VIAL IVP SCH (06:00)
[2021-08-12] MEDS: Acetaminophen 325 MG TABLET PO PRN (08:31)
[2021-08-12] MEDS: Ondansetron 4 MG/2 ML VIAL IVP PRN ×2 (08:31→17:31)
[2021-08-12] MEDS: Aspirin Enteric Coated 81 MG Tablet PO SCH (08:31)
[2021-08-12] MEDS: Ringers Solution, Lactated 1,000 ML IVC SCH ×2 (08:32→17:32)
[2021-08-12] MEDS ORDERED: Fluticasone Propionate Nasal 50 MCG/SPRAY BOTTLE NS PRN (13:11)
[2021-08-13 01:35] LABS: Hematocrit 41.7 % (37.5-50.1); Hemoglobin 13.5 g/dL (12.9-16.9); Mean Corpuscular HGB Conc 32.4 g/dL (31.6-35.5); Mean Corpuscular Hemoglobin 29.3 pg (28.0-33.3); Mean Corpuscular Volume 90.5 fL (83.0-100.0); Platelet Count 268 K/mcL (140-400); Red Blood Count 4.61 M/mcL (4.19-5.50); Red Cell Distribution Width 12.8 % (11.5-14.5)
[2021-08-13 01:46] LABS: White Blood Count 33.2 K/mcL (4.3-11.1)
[2021-08-13 01:54] LABS: Magnesium 1.8 mg/dL (1.6-2.6); Phosphorous 2.3 mg/dL (2.7-4.5)
[2021-08-13 02:05] LABS: BUN/Creatinine Ratio 12 (6-26); Blood Urea Nitrogen 9 mg/dL (6-20); Calcium 8.5 mg/dL (8.6-10.3); Carbon Dioxide 27 mEq/L (23-29); Chloride 99 mEq/L (98-107); Glucose 144 mg/dL (70-105); Osmolality,Calculated 279 (280-300); Potassium 4.1 mEq/L (3.5-5.1); Sodium 134 mEq/L (136-145); eGFR For African Americans > 60 (> 60); eGFR For Non-African Americans > 60 (> 60)
[2021-08-13 08:11] LABS: Red Cell Distribution Width 12.9 % (11.5-14.5)
[2021-08-13 08:13] LABS: Hematocrit 40.9 % (37.5-50.1); Hemoglobin 13.6 g/dL (12.9-16.9); Mean Corpuscular HGB Conc 33.3 g/dL (31.6-35.5); Mean Corpuscular Hemoglobin 30.1 pg (28.0-33.3); Mean Corpuscular Volume 90.5 fL (83.0-100.0); Mean Platelet Volume 10.8 fL (9.4-12.4); Platelet Count 259 K/mcL (140-400); Red Blood Count 4.52 M/mcL (4.19-5.50)
[2021-08-13 08:31] LABS: White Blood Count 31.3 K/mcL (4.3-11.1)
[2021-08-13] MEDS: Ondansetron 4 MG/2 ML VIAL IVP PRN (11:28)
[2021-08-13] MEDS: Aspirin Enteric Coated 81 MG Tablet PO SCH (11:28)
[2021-08-13] MEDS: Pantoprazole 40 MG VIAL IVP SCH (11:28)
[2021-08-14] MEDS: Acetaminophen 325 MG TABLET PO PRN (02:44)
[2021-08-14] MEDS: Ondansetron 4 MG/2 ML VIAL IVP PRN (02:44)
[2021-08-14 03:41] VITALS: TEMP 97.9
[2021-08-14] MEDS ORDERED: *HR* Enoxaparin 40 MG/0.4 ML SYRINGE SQ SCH (06:00)
[2021-08-14 06:50] VITALS: O2SAT 97
[2021-08-14] MEDS: Aspirin Enteric Coated 81 MG Tablet PO SCH (08:43)
[2021-08-14] MEDS: Pantoprazole 40 MG VIAL IVP SCH (08:44)
[2021-08-14 10:55] VITALS: BP 122/78; PULSE 73
[2021-08-14 12:44] LABS: Basophils % 0.1 %; Eosinophils # 0.1 K/mcL (0.0-0.6); Eosinophils % 0.3 %; Hemoglobin 13.5 g/dL (12.9-16.9); Immature Granulocytes % 0.8 % (0-4); Lymphocytes # 1.4 K/mcL (0.6-4.6); Lymphocytes % 7.1 %; Mean Corpuscular HGB Conc 32.9 g/dL (31.6-35.5); Mean Corpuscular Hemoglobin 29.2 pg (28.0-33.3); Mean Corpuscular Volume 88.7 fL (83.0-100.0); Mean Platelet Volume 10.9 fL (9.4-12.4); Monocytes # 1.7 K/mcL (0.0-1.3); Monocytes % 8.4 %; Platelet Count 263 K/mcL (140-400); Red Blood Count 4.62 M/mcL (4.19-5.50); Red Cell Distribution Width 12.8 % (11.5-14.5); Segmented Neutrophils % 83.3 %; White Blood Count 20.4 K/mcL (4.3-11.1)
[2021-08-14 13:04] LABS: BUN/Creatinine Ratio 15 (6-26); Blood Urea Nitrogen 12 mg/dL (6-20); Calcium 8.7 mg/dL (8.6-10.3); Carbon Dioxide 29 mEq/L (23-29); Chloride 95 mEq/L (98-107); Glucose 121 mg/dL (70-105); Osmolality,Calculated 279 (280-300); Potassium 3.8 mEq/L (3.5-5.1); Sodium 134 mEq/L (136-145); eGFR For African Americans > 60 (> 60); eGFR For Non-African Americans > 60 (> 60)
== END 2021-08-14 14:01 | disposition home or self-care (01) ==
LOC: 3ANU 16:40 → EMEROOARM 16:40 → SUATTDRO 08-12 01:28 → 3BNU 08-12 01:32
PROVIDERS: ADMIT Internal Medicine; ATTEND Internal Medicine